=== PATIENT | female | born 1970 | race Caucasian/White ===

== ENCOUNTER → 2016-11-08 | Outpatient (CLI) | payer BC ==
[~2016-11-08] MED LIST: MEDR10TA9 PO; MULT-506 PO; ONDA4TAB46 PO; PRT/40 PO; RANI150T3 PO; SYN112 PO
[2016-11-08 11:19] LABS: ALT/SGPT 39 U/L (12-78); AST/SGOT 23 U/L (15-37); BLOOD UREA NITROGEN 9 mg/dl (7-18); CALCIUM 8.7 mg/dl (8.5-10.1); CARBON DIOXIDE 27 mmol/L (21-32); CHLORIDE 105 mmol/L (98-107); CHOLESTEROL 185 mg/dl (0-200); CREATININE 0.57 mg/dl (0.60-1.20); GLUCOSE 99 mg/dl (70-99); POTASSIUM 3.8 mmol/L (3.5-5.1); SODIUM 141 mmol/L (136-145)
[2016-11-08 11:30] LABS: CHOLESTEROL/HDL RATIO 3.7; HDL CHOLESTEROL 50 mg/dl; LDL CHOLESTEROL CALCULATED 103 mg/dl; TRIGLYCERIDES 161 mg/dl (0-150); VERY LOW DENSITY LIPOPROT CALC 32 mg/dl
[2016-11-08 11:34] LABS: ESTIMATED AVERAGE GLUCOSE 123 mg/dl; HA1C FLAG Normal (Normal)
== END | disposition home or self-care (01) ==
LOC: C.LAB1850 09:58
PROVIDERS: ATTEND Internal Medicine
DX: E78.5 Hyperlipidemia, unspecified (principal); R73.03 Prediabetes; E03.9 Hypothyroidism, unspecified

== ENCOUNTER → 2017-05-30 | Outpatient (CLI) | payer BC ==
--- NOTE | 2017-05-31 07:53 | MAMMOGRAPHY REPORT ---
BILATERAL DIGITAL SCREENING MAMMOGRAM TOMOSYNTHESIS WITH CAD: 05/30/2017 CLINICAL HISTORY: Routine screening. Patient has no complaints. TECHNIQUE: Breast tomosynthesis in addition to standard 2D mammography was performed. Current study was also evaluated with a Computer Aided Detection (CAD) system. COMPARISON: Comparison is made to exams dated: 05/24/2016 mammogram, 05/19/2015 mammogram, 03/15/2014 m ammogram, 03/02/2013 mammogram, 03/03/2012 mammogram, and 03/03/2012 ultrasound - [facility]. BREAST COMPOSITION: There are scattered areas of fibroglandular density in both breasts. FINDINGS: There are stable benign calcifications in both breasts. No suspicious mass, architectural distortion or cluster of suspicious microcalcifications is seen. IMPRESSION: ACR BI-RADS CATEGORY 1: NEGATIVE There is no mammographic evidence of malignancy. A 1 year screening mammogram is recommended. The pa tient will receive written notification of the results. Approximately 10% of breast cancers are not detected with mammography. A negative mammographic report should not delay biopsy if a clinically suggestive mass is present. Lili Almendarez M.D. ay/:05/30/2017 20:38:37 Supply Chain Logistics Manager: Marisela SANCHEZ)(Anton), [facility] letter sent: Normal 1/2 BI-RADS Code: ACR BI-RADS Category 1: Negative
== END | disposition home or self-care (01) ==
LOC: C.MAMM 09:26
PROVIDERS: ATTEND Internal Medicine
DX: Z12.31 Encounter for screening mammogram for malignant neoplasm of breast (principal)

== ENCOUNTER 2023-09-01 13:16 | Inpatient (IN) ==
[2023-09-01] MEDS ORDERED: SODIUM CHLORIDE 0.9% 500 ML IV STA (13:34)
--- NOTE | 2023-09-01 13:34 | ED Triage Note ---
Date of Service September 01, 2023 Provider in Triage Author: Antonia Estrada History of Present Illness This patient was briefly evaluated while in triage. An abbreviated physical exam was performed. This patient is a 53-year-old Female who presents to the ED for evaluation of rectal bleed. She states that she has had intermittent bright red or dark red rectal bleeding for the past 6-8 weeks. She is scheduled for hemorrhoid surgery soon. However, they did blood work and her Hgb was in the 6's per patient so they sent her to the ER. She states that she had the blood work last week through [facility], but they just contacted her today. Has a mild cough and congestion as well. Not on any blood thinners. Physical Exam GENERAL: Non-toxic and in no acute distress. HEENT: Pupils equal. No obvious scleral icterus. HEART: Regular rate and rhythm. LUNGS: Clear to auscultation. No accessory muscle use. ABDOMEN: Soft, mild diffuse tenderness in the lower abdomen. No guarding or rigidity. NEURO: Alert and oriented. No obvious neurological deficits on quick neuro exam. Initial orders for labs and / or imaging were placed and patient was placed in the waiting area until a bed is available. Please see further documentation for the full ED course. MDM / Impression Impression Impression: Rectal bleeding, Symptomatic anemia
--- NOTE | 2023-09-01 14:32 | XRay Report ---
XR chest 1V not portable CLINICAL HISTORY: Anemia, rectal bleeding. COMPARISON STUDY: Chest radiograph May 05, 2022. FINDINGS: Lung volumes are normal. Lungs are clear. There is no pneumothorax or pleural effusion. Car diac size is normal. Prominence of the contour of the ascending aorta is unchanged. There is no evide nce for pulmonary edema. IMPRESSION: No acute cardiopulmonary findings. ACT 112: Negative or not required by law. Electronically signed by: Jimmy Eid M.D. 09/01/2023 2:31 PM
[2023-09-01 14:46] LABS: Appearance Urine Clear (Clear); Bilirubin Urine Negative (Negative); Blood Urine Negative (Negative); Color Urine Yellow; Glucose Urine UA Negative (Negative); Ketones Urine Negative (Negative); Leukocyte Esterase Urine Negative (Negative); Nitrite Urine Negative (Negative); Protein Urine Negative (Negative); Specific Gravity Urine 1.003 (1.000-1.030); Urobilinogen Urine Negative (Negative); pH Urine 6.5 (4.5-7.5)
[2023-09-01 14:47] LABS: Basophils # (auto) 0.04 K/uL (0.00-0.20); Basophils % (auto) 0.6 %; Eosinophils # (auto) 0.04 K/uL (0.00-0.50); Eosinophils % (auto) 0.6 %; Hematocrit (blood only) 23.7 % (37.0-47.0); Hemoglobin 7.4 g/dl (12.0-16.0); Immature Granulocytes # (auto) 0.11 K/uL (0.01-0.20); Immature Granulocytes % (auto) 1.6 %; Lymphocytes # (auto) 0.84 K/uL (1.20-3.40); Lymphocytes % (auto) 11.9 %; Mean Corpuscular Hemoglobin 26.2 pg (25.0-34.0); Mean Corpuscular Hgb Conc 31.2 g/dL (32.0-36.0); Mean Platelet Volume 9.7 fL (9.4-12.4); Monocytes # (auto) 0.44 K/uL (0.11-0.59); Monocytes % (auto) 6.2 %; Neutrophils # (auto) 5.58 K/uL (1.40-6.50); Neutrophils % (auto) 79.1 %; Platelet Count 372 K/uL (130-400); RDW Coefficient of Variation 13.2 % (11.5-14.5); RDW Standard Deviation 40.5 fL (36.4-46.3); Red Blood Count 2.82 M/uL (4.20-5.40); White Blood Count 7.05 K/ul (4.8-10.8)
[2023-09-01 14:50] LABS: Albumin Globulin Ratio 1.3 (0.9-2); Albumin Level 4.2 gm/dl (3.4-5.0); BUN Creatinine Ratio 15.2 (10-20); Bilirubin,Total 0.3 mg/dl (0.2-1.0); Calcium 9.3 mg/dl (8.6-10.3); Creatinine Clr Calc Pharmacy 122.5 ml/min; Est GFR (African American) 117.7 ml/min; Est GFR (Non-African American) 101.6 ml/min; Globulin 3.2 gm/dl (2.5-4.0); Potassium 3.8 mmol/L (3.5-5.1); Total Protein 7.4 gm/dl (6.0-8.3)
[2023-09-01 14:56] LABS: Troponin I High Sensitivity 4.1 pg/ml (0-14)
[2023-09-01 14:58] LABS: Partial Thromboplastin Ratio 0.8; Partial Thromboplastin Time 22 Seconds (21-31); Prothrombin Time 10.9 Seconds (9.0-12.0)
[2023-09-01 15:09] LABS: Influenza A virus by PCR Negative (Neg); Influenza B virus by PCR Negative (Neg); RSV by PCR Negative (Neg); SARS CoV2 RNA(COVID-19) Ceph NEGATIVE (Negative)
[2023-09-01 15:10] LABS: Hypochromasia Present
[2023-09-01] MEDS ORDERED: OPTIRAY 320 500ml IV ONE (16:12)
--- NOTE | 2023-09-01 16:31 | CT Scan Report ---
CT OF THE ABDOMEN AND PELVIS WITH CONTRAST CLINICAL HISTORY: Rectal bleeding, anemia. COMPARISON STUDY: CT of the abdomen and pelvis June 13, 2014. Abdominal series November 12, 2014. TECHNIQUE: Following IV administration of 88 mL of Optiray, axial images of the abdomen and pelvis we re obtained from the lung bases to the proximal femurs. Images were reviewed in the axial, sagittal, and coronal planes. IV contrast was administered without complication. Automated exposure control wa s utilized for the study. A dose lowering technique was utilized adhering to the principles of ALARA . CT DOSE: 1526.61 mGy.cm FINDINGS: Lung bases are unremarkable. No pneumatosis, free air or portal venous gas is present. Ther e is probable hepatic steatosis. No hepatic lesions are identified. There is no biliary ductal dilata tion status post cholecystectomy. Spleen, adrenal glands, pancreas and right kidney are normal. There is a 3 mm left renal calculus. There are no ureteral calculi. There is no hydronephrosis. Major vasc ulature is patent. There are stable postoperative findings following subtotal colectomy with ileosigm oid anastomosis. Mild wall thickening of the alignment of the colon is unchanged. No mucosal lesion i s identified although sensitivity is diminished given CT technique. Prominent mesenteric lymph node m easuring 1.4 cm on image 218 of 421 is stable to slightly decreased in size. This is benign. There is no free fluid. A low-attenuation 3.1 cm left adnexal lesion favors a left ovarian cyst. IMPRESSION: 1. No acute process within the abdomen or pelvis. 2. Stable postoperative findings following subtotal colectomy with ileosigmoid anastomosis. No eviden ce for a bowel obstruction. No change in mild wall thickening of the alignment of the colon which is likely chronic. No mucosal lesion identified although sensitivity diminished given CT technique. 3. 3 mm left renal calculus. No ureteral calculi. No hydronephrosis. ACT 112: Negative or not required by law. Electronically signed by: Jimmy Eid M.D. 09/01/2023 4:29 PM
--- NOTE | 2023-09-01 17:21 | Electrocardiogram Report ---
Test Reason : Blood Pressure : / mmHG Vent. Rate : 108 BPM Atrial Rate : 108 BPM P-R Int : 150 ms QRS Dur : 088 ms QT Int : 342 ms P-R-T Axes : 034 001 034 degrees QTc Int : 458 ms Sinus tachycardia Otherwise normal ECG When compared with ECG of 22-NOV-2008 17:25, No significant change was found Confirmed by Xiang Layton ([id number]) on 09/01/2023 5:21:03 PM Referred By: Confirmed By:Osiel Layton
--- OUTSIDE RECORDS SUMMARY | 2023-09-01 17:29 | External Medical Summary | Summary of Care ---
Author Name Unknown Organization [facility] Address [address] [facility] [place] [address] Phone [phone] Care Team Providers Care Economics Faculty Member Name Role Phone Glenn Carpio MD Primary Care Provider [phone]- [phone] Encounter Details Date Type Department Care Team (Late st Contact Info) Description 09/01/2023 Orders Only OR [facility], Operating Room [facility] [address] [place] [phone] Louis Hopkins MD [address] [place] [id number] Preop examination* Allergies Active Allergy Reactions Criticality Noted Date Comments Amoxicillin-Pot Clavulanate Abdominal pain,Diarrhea 01/20/2016 Piperacillin Sod-Tazobactam So Hives 01/20/2016 documented as of this encounter (statuses as of 09/01/2023) Medications Medication Sig Dispensed Refills Start Date End Date Status MULTIPLE VITAMIN PO TABS One tablet daily 30 0 08/18/2006 Active Azelastine HCl 0.1 % nasal spray Administer 2 Sprays into nostril in the morning. 0 09/22/2019 Active Ipratropium [place] 0.06 % nasal spray at bedtime. 0 09/22/2019 Activ e Aspirin 81 MG Oral Tablet Delayed Release Take 1 Tablet by mouth every afternoon. 0 03/27/2020 Active Vitamin D3 Maximum Strength 125 MCG (5000 UT) Oral Capsule Take 1 Capsule by mouth in the morning. 0 07/06/2020 Active Levothyroxine Sodium 137 MCG Oral Tablet Take 1 Tablet by mouth in the morning. 0 06/06/2021 Active Xiidra 5 % Ophthalmic Solution 2 times a day. 0 05/26/2021 A ctive Mupirocin 2 % External Ointment (Bactroban) 0 05/12/2021 Active Vitamin B-12 1000 MCG Oral Tablet Take 1 Tablet by mouth in the morning. 0 Active Pantoprazole Sodium 40 MG Oral Tablet Delayed Release (Protonix) Take 1 Tablet by mouth in the morning. 90 Tablet 3 11/17/2022 Active Famotidine 20 MG Oral Tablet (Pepcid) TAKE 1 TABLET BY MOUTH AT BEDTIME 90 Tablet 1 03/15/2023 Active Dicyclomine HCl 10 MG Oral Capsule (Bentyl) TAKE 1 CAPSULE BY MOUTH THREE TIMES DAILY 90 Capsule 3 05/12/2023 Active documented as of this encounter (statuses as of 09/01/2023) Active Problems Problem Noted Date Diagnosed Date Dyslipidemia, goal to be determined 12/29/2000 ABDOMINAL PAIN, RIGHT UPPER QUADRANT 03/03/2000 Irritable bowel syndrome documented as of this encounter (statuses as of 09/01/2023) Social History Tobacco Use Types Packs/Day Years Used Date Smoking Tobacco: Never Smokeless Tobacco: Never Alcohol Use Standard Drinks/Week Comments Yes 0 (1 standard drink = 0.6 oz pur e alcohol) rare Sex and Gender Information Value Date Recorded Sex Assigned at Not on file Gender Identity Not on file Sexual Orientation Not on file Job Start Date Occupation Industry Not on file Not on file Not on file documented as of this encounter Plan of Treatment Upcoming Encounters Date Type Department Care Team (Latest Contact Info) Description 09/09/2023 12:05 PM EST Hospital Encounter OR [facility], Operating Room [facility] [address] [phone] Jono Hannah MD [address] [place] [address] 09/09/2023 12:05 PM EST - 09/09/2023 1:32 PM EST Surgery OR [facility], Operating Room [facility] [address] [address] [phone] Jono Hannah MD [address] [id number] ANORECTAL EXAM UNDER ANESTHESIA 09/21/2023 10:00 AM EST Office Visit General Surgery, [facility] [address] [place] [id number] Jono Hannah MD [address] [place] [id number] Scheduled Orders Name Type Priority Associated Diagnoses Orde r Schedule CBC Lab Routine Preop examination Expected: 09/01/2023, Expires: Scheduled Procedures Name Priority Associated Diagnoses Date/Ti me ANORECTAL EXAM UNDER ANESTHESIA Anal fissure Hemorrhoids, unspecified hemorrhoid type 09/09/2023 12:05 PM EST TREATMENT OF ANAL FISTULA COMPLEX Anal fissure Hemorrhoids, unspecified hemorrhoid type 09/09/2023 12:05 PM EST HEMORRHOIDECTOMY EXTERNAL AN D INTERNAL COMPLEX Anal fissure Hemorrhoids, unspecified hemorrhoid type 09/09/2023 12:05 PM EST COLONOSCOPY FLEXIBLE PROXIMA L DIAGNOSTIC Recall History of colon polyps Health Maintenance Due Date Last Done Comments Hepatitis B (1 of 3 - 3-dose series) 1971 COVID-19 Vaccine (#1) 1971 Depression Screening 1983 HIV Screening 1986 Hepatitis C Screening 1989 DTaP,Tdap,and Td Vaccines (1 - Tdap) 1990 HPV/Co-Test 2001 TSH 10/06/2001 10/06/2000 Cervical Cancer Screening 08/14/2006 Pap Smear 08/14/2006 08/14/2003, 08/05, 06/29/2001, Additional history exists Lipid Panel 10/03/2008 10/03/2003, 08/05, 10/23/2001, Additional history exists Mammogram 2011 Zoster Vaccines (1 of 2) 2021 Influenza Vaccine (FLU shot) (#1) 2023 Diabetes Screening 08/24/2026 08/24/2023, 0 10/03/2003, 08/22/2002, Additional history exists COLONOSCOPY-EVERY 5 YRS AGES 18-100 10/29/2027 10/29/2022, 10/29/2022, 05/23/2017, Additional history exists GARDASIL-HPV IMMUNIZATION SERIES Aged Out No longer eligible based on patient's age to complete this topic MENINGOCOCCAL (MENACTRA/MENVEO) Aged Out No longer eligible based on patient's age to complete this topic Pneumococcal Vaccine: Pediatrics (0 to 5 Years) and At-Risk Patients (6 to 64 Years) Aged Out No longer eligible based on patient's age to complete this topic documented as of this encounter Medical Devices Not on filedocumented as of this encounter Visit Diagnoses Diagnosis Preop examination- Primary Preoperative examination, unspecified Anal fissure Hemorrhoids, unspecified hemorrhoid type documented in this encounter Care Teams Economics Faculty Member Relationship Specialty Start Date End Date Pro, Glenn Urbina MD [address] [place] [address] PCP - General Internal Medicine 12/26/15 documented as of this encounter
--- OUTSIDE RECORDS SUMMARY | 2023-09-01 17:29 | External Medical Summary | Summary of Care ---
Author Name Unknown Organization [facility] Address [address] [place] [address] Phone [phone] Care Team Providers Care Orthopaedic Doctor Name Role Phone Glenn Carpio MD Primary Care Provider +1- [phone] Encounter Details Date Type Department Care Team (Late st Contact Info) Description 08/30/2023 Orders Only Outcomes Research Department [address], [place] [address] Jenna Swain [email or web address] Research Other*[id number] Allergies Active Allergy Reactions Criticality Noted Date Comments Amoxicillin-Pot Clavulanate Abdominal pain,Diarrhea 01/20/2016 Piperacillin Sod-Tazobactam So Hives 01/20/2016 documented as of this encounter (statuses as of 08/30/2023) Medications Medication Sig Dispensed Refills Start Date End Date Status MULTIPLE VITAMIN PO TABS One tablet daily 30 0 08/18/2006 Active Azelastine HCl 0.1 % nasal spray Administer 2 Sprays into nostril in the morning. 0 09/22/2019 Active Ipratropium [place] 0.06 % nasal spray at bedtime. 0 [...] as of this encounter (statuses as of 08/30/2023) Active Problems Problem Noted Date Diagnosed Date Dyslipidemia, goal to be determined 12/29/2000 ABDOMINAL PAIN, RIGHT UPPER QUADRANT 03/03/2000 Irritable bowel syndrome documented as of this encounter (statuses as of 08/30/2023) Social History Tobacco Use Types Packs/Day Years [...] Care Team (Latest Contact Info) Description 09/09/2023 1:28 PM EST Hospital Encounter OR [facility], Operating Room [facility] [address] [phone] Jono Hannah MD [address] [address] 09/09/2023 1:28 PM EST - 09/09/2023 2:55 PM EST Surgery OR [facility], Operating Room [facility] [address] [phone] Jono Hannah MD [address] [address] ANORECTAL EXAM UNDER ANESTHESIA 09/21/2023 10:00 AM EST Office Visit General Surgery, [facility] [address] [place] [address] Jono Hannah MD [address] [place] [address] Scheduled Orders Name Type Priority Associated Diagnoses Orde r Schedule MYCODE SUBSEQUENT ADULT Lab Routine [employer] Other*[id number] Every 6 Months for 2 Occurrences starting 08/30/2023 until 09/18/2024 Scheduled Procedures Name Priority Associated Diagnoses Date/Ti me ANORECTAL EXAM UNDER ANESTHESIA Anal fissure Hemorrhoids, unspecified hemorrhoid type 09/09/2023 1:28 PM EST TREATMENT OF ANAL FISTULA COMPLEX Anal fissure Hemorrhoids, unspecified hemorrhoid type 09/09/2023 1:28 PM EST HEMORRHOIDECTOMY EXTERNAL AN D INTERNAL COMPLEX Anal fissure Hemorrhoids, unspecified hemorrhoid type 09/09/2023 1:28 PM EST COLONOSCOPY FLEXIBLE PROXIMA L DIAGNOSTIC [...] as of this encounter Visit Diagnoses Diagnosis [employer] Other*[id number] Anal fissure Hemorrhoids, unspecified hemorrhoid type documented in this encounter Care Teams Orthopaedic Doctor Relationship Specialty Start Date End Date Pro, Glenn Urbina MD [address] [place] [address] PCP - General Internal Medicine 12/26/15 documented as of this encounter
--- NOTE | 2023-09-01 18:43 | Emergency Department Note ---
Impression & Plan Rectal bleeding, Symptomatic anemia ED Provider Note CHIEF COMPLAINT: Rectal bleeding HISTORY OF PRESENTING ILLNESS: This 53-year-old female patient presents to the emergency department for evaluation of rectal bleeding. In June 2023 she had a BM that was very watery and had a lot of bright red blood when she wiped. Since that time she has had random episodes of bright red blood and dark red blood in her stools, in the toilet bowl, and when she wipes. Seems to be having more frequent episodes and a larger amount of rectal bleeding. Now it fills the toilet bowl when she goes. Had 2 episodes yesterday, but none today. Typically has the rectal bleeding at least 4-5 times a week since June. Has been following with Dr. Hannah for evaluation of hemorrhoids as a cause of the rectal bleeding. However, the symptoms did not improve with symptomatic treatment. The patient was going to be scheduled for further intervention and had preop testing done and was found to have a hemoglobin of 6.7. However, the patient stated that she was not told until today that her hemoglobin was low and that she should come to the ER. Has mild lower abdominal cramping prior to the rectal bleeding, but otherwise no abdominal pain. Her stools range from normal soft formed BMs to a little firmer stools to loose stools. Has been feeling very tired and has some SOB with exertion and lightheadedness with exertion over the past 1-2 weeks. Denies chest pain, fevers, nausea, or vomiting. However, the patient has had a mild cough and nasal congestion for the past couple of days. Her last colonoscopy and EGD was Oct 29, 2022 through [facility]. Upon review of [facility] records, colonoscopy showed a 3 mm polyp in the rectum and a patent functional end-to-end ileocolonic anastomosis with healthy-appearing mucosa. EGD showed no acute abnormality with esophageal dilation performed. I do not have the results of the biopsies of either her colonoscopy or EGD. She has a history of partial colectomy due to diverticulitis and a large colon polyp in the past. Paternal great aunt with colon cancer, but no other family history of colon cancer. Has never had a blood transfusion before. Not on any blood thinners. Upon review of [facility] records, hemoglobin from 06/14/2023 was 14.6. Hemoglobin from 08/24/2023 was 6.7. REVIEW OF SYSTEMS: See HPI for pertinent positives and pertinent negatives. ALLERGIES: Tazobactam, Zosyn, Augmentin, PCN MEDICATIONS: See below PAST MEDICAL HISTORY: See below PHYSICAL EXAM: VITALS: Vitals are noted on the nurse's note and reviewed by myself. GENERAL: Non toxic, no acute distress, non-diaphoretic. SKIN: Capillary refill <2 sec. EYES: PERRLA. EOMI. Conjunctivae without injection, sclerae without icterus. NOSE: Patent without discharge. MOUTH: Mucous membranes moist. Uvula midline. Airway patent. NECK: Supple without nuchal rigidity. HEART: Regular rate and rhythm without murmurs gallops or rubs. LUNGS: Clear to auscultation bilaterally without wheezes, rales or rhonchi. No retractions or accessory muscle use. ABDOMEN: Positive bowel sounds x 4. Normal tympanic percussion. Soft, mild lower tenderness to palpation. No masses or organomegaly. Paredes sign negative. No CVA tenderness. No guarding or rebound tenderness. No focal RLQ or LLQ tenderness. RECTAL EXAM: Permission to perform the exam. [employer] Lining Machine Feeder present for the exam. Very small external hemorrhoid that is not inflamed or bleeding. No other external lesions noted. Normal sphincter tone. Internal hemorrhoids are mildly enlarged. No masses, tears, fistulas, fissures, or abscess noted. Stool is brown and Hemoccult positive. MUSCULOSKELETAL: No gross musculoskeletal defects. NEURO: Patient was alert and oriented. No focal neurological deficits. DIFFERENTIAL DIAGNOSIS: Differential diagnosis includes diverticular bleed, ischemic colitis, colitis, inflammatory bowel disease, AVM, angiodysplastic lesion, coagulopathy, malignancy, anal fissure, rectal tear, perianal fistula, abscess, hemorrhoids, rectal ulcer, Meckel's diverticulum, as well as other pathologies. ED COURSE AND MEDICAL DECISION MAKING: MONITOR: Continuous monitoring tech: Order was placed for continuous monitoring tech. Patient was placed on the monitoring tech and continuous pulse ox. Patient was noted to be in normal sinus rhythm at an initial rate of 96 bpm per my interpretation. EKG: EKG was interpreted by myself as sinus tachycardia at 108 bpm with no acute ST or T wave changes. MEDICATIONS GIVEN: The patient was given 500 mL normal saline solution bolus. She was given 1 unit of packed red blood cells. INTERPRETATION OF LABS: I interpreted the labs with full lab results as below in the lab section of this note. White blood cell count normal at 7.05. Hemoglobin low at 7.4. Platelet count normal at 372. Coags were normal. Glucose 106, but CMP otherwise unremarkable. Lipase was normal. High- sensitivity troponin was normal. Urinalysis was negative. COVID, influenza, and RSV were negative. Iron panel and TIBC were ordered prior to the blood transfusion. INTERPRETATION OF IMAGING: Imaging studies were interpreted by myself and read by radiology as per the imaging section of this note. Chest x-ray negative for acute cardiopulmonary etiology. CT scan of the abdomen pelvis with IV contrast showed no acute abnormalities. Stable postoperative findings with a subtotal colectomy and ileosigmoid anastomosis. EXTERNAL RECORDS REVIEWED: I reviewed the patient's [facility] records including her EGD and colonoscopy from October 2022 as well as her hemoglobin from June 2023 and 08/24/2023 as summarized above. CONSULTATIONS: On-call hospitalist MDM SUMMARY: The patient was seen during a time of extreme volume and extreme acuity. Nursing triage protocols were initiated with IV lock, labs, and/or imaging studies conducted by protocol in the triage area. The patient was initially evaluated in a triage room and then re-examined once they were taken back to an exam room. The patient's rectal exam with mildly inflamed internal hemorrhoids and brown stool that was Hemoccult positive. The patient showed me pictures of moderate to large amounts of bright red blood within the toilet bowl that she says has been happening multiple times a day multiple days a week since June 2023. The patient had an EGD and colonoscopy in October 2022 with a 3 mm rectal polyp that was removed, but otherwise unremarkable. Upon review of [facility] records, hemoglobin from 06/14/2023 was 14.6. Hemoglobin from 08/24/2023 was 6.7. The patient states that she was only called today to come to the ER due to her abnormal lab result. The patient's hemoglobin today is 7.4. CT scan of the abdomen and pelvis without acute abnormalities or cause of the bleeding. The patient is having fatigue as well as shortness of breath and lightheadedness with exertion. I had a meaningful discussion about this patient with Dr. Iglesias who agrees with my assessment and the treatment plan. I discussed the purpose, risks, and benefits of blood transfusion with the patient. The patient agreed to the transfusion and consent form was signed. Iron panel and ferritin were obtained prior to the blood transfusion. The patient was given 1 unit of packed red blood cells. Due to the patient's symptomatic anemia with continued rectal bleeding and Hemoccult positive stools, we feel the patient would benefit from admission. I spoke with the on-call hospitalist who agreed to admit the patient for further management. Please refer to their dictation for further details. The patient's care was transferred in stable condition. DIAGNOSIS: Rectal bleeding Symptomatic anemia Past Med/Surg History Medical History Sensorineural hearing loss (SNHL) of left ear with restricted hearing of right ear Thoracic compression fracture Acute back pain less than 4 weeks duration Lyme disease Biliary dyskinesia Sensorineural hearing loss (SNHL) of left ear with unrestricted hearing of right ear Tinnitus of both ears Ruptured tympanic membrane Acute sinusitis Ophthalmic herpes simplex Surgical History Hx of colonoscopy (~2016) History of partial colectomy Hx of cholecystectomy (~2010) S/P ACL repair S/P arthroscopy of knee H/O oral surgery Hx of tonsillectomy Family History Father Hypertension Hyperlipidemia Mother Hyperlipidemia Hypertension Breast cancer Grandfather Coronary heart disease Myocardial infarction Unknown Diabetes Grandmother Glaucoma Leukemia Social History Smoking Status: Never smoker Second Hand Exposure: Yes; Hx Alcohol Use: Yes Preferred Language: Tajik marital status: Single Current Living Situation: Alone current occupational status: employed Feels Safe at Home: Yes Dental Care, Regularly: Yes Physical Activity Frequency: 1-2 Times per Week Seatbelt Use: always Allergies Allergies Allergy/AdvReac Type Severity Reaction Status Date / Time tazobactam Allergy Mild ZOSYN--RXN Verified 09/01/23 19:20 UNKNOWN, TOLERATES MEFOXIN piperacillin [From Zosyn] Allergy Verified 09/01/23 19:20 amoxicillin AdvReac Intermediate DIARRHEA Verified 09/01/23 19:20 AND PAIN IN STOMACH clavulanic acid AdvReac Mild STOMACH Verified 09/01/23 19:20 UPSET AND DIARRHEA Penicillins AdvReac Mild STOMACH Verified 09/01/23 19:20 UPSET AND DIARRHEA Home Meds Home Medications Medication Instructions Recorded Confirmed dicyclomine 10 mg capsule 10 mg PO TID 03/19/19 09/01/23 multivitamin 1 tab PO QAM 03/19/19 09/01/23 famotidine 20 mg tablet 20 mg PO HS 01/16/20 09/01/23 aspirin 81 mg tablet,delayed 81 mg PO PM 04/10/20 09/01/23 release (Adult Aspirin Regimen) mecobalamin (vitamin B12) 1,000 1,000 mcg PO QAM 08/25/21 09/01/23 mcg chewable tablet lifitegrast 5 % eye drops in a 1 drp ophthalmic (eye) BID 05/05/22 09/01/23 dropperette (Xiidra) cholecalciferol (vitamin D3) 125 125 mcg PO QAM 09/01/23 09/01/23 mcg (5,000 unit) capsule ipratropium bromide 21 mcg (0.03 1 spray intranasal PM 09/01/23 09/01/23 %) nasal spray levothyroxine 137 mcg tablet 137 mcg PO QAM 09/01/23 09/01/23 pantoprazole 40 mg tablet,delayed 40 mg PO QAM 09/01/23 09/01/23 release Results & Data (ED) Vital Signs Vital Signs - 24 hr 09/01/23 13:33 09/01/23 18:59 09/01/23 19:02 Temperature 36.5 C Temperature Source Temporal Artery Scan Pulse Rate 117 H 99 H Pulse Rate [Apical] 99 H Respiratory Rate 18 18 Respiratory Effort / Characteristics Non-Labored Non-Labored Respiratory Depth Normal Normal Blood Pressure 162/96 H Blood Pressure [Right Arm] 140/94 Blood Pressure Mean 118 Blood Pressure Mean [Right Arm] 109 Pulse Oximetry 100 98 Oxygen Delivery Method Room Air Room Air Sepsis Recent Fever Within 48 Hours No Sepsis New/Unexplained Change in Mental Status No Sepsis Action Taken by Nursing No Action Required 09/01/23 19:02 Temperature Temperature Source Pulse Rate 92 H Pulse Rate [Apical] Respiratory Rate 18 Respiratory Effort / Characteristics Respiratory Depth Blood Pressure Blood Pressure [Right Arm] Blood Pressure Mean Blood Pressure Mean [Right Arm] Pulse Oximetry 95 Oxygen Delivery Method Room Air Sepsis Recent Fever Within 48 Hours Sepsis New/Unexplained Change in Mental Status Sepsis Action Taken by Nursing Laboratory Data 09/01/23 14:05 09/01/23 14:05 Lab Results 09/01/23 09/01/23 09/01/23 Range/Units 14:05 14:06 14:08 WBC 7.05 (4.8-10.8) K/ul RBC 2.82 L (4.20-5.40) M/uL Hgb 7.4 L (12.0-16.0) g/dl Hct 23.7 L (37.0-47.0) % MCV 84.0 (80.0-100.0) fL MCH 26.2 (25.0-34.0) pg MCHC 31.2 L (32.0-36.0) g/dL RDW Std Deviation 40.5 (36.4-46.3) fL RDW Coeff of Annie 13.2 (11.5-14.5) % Plt Count 372 (130-400) K/uL MPV 9.7 (9.4-12.4) fL Immature Gran % (Auto) 1.6 % Neut % (Auto) 79.1 % Lymph % (Auto) 11.9 % [place] % (Auto) 6.2 % Eos % (Auto) 0.6 % Baso % (Auto) 0.6 % Neut # (Auto) 5.58 (1.40-6.50) K/uL Lymph # (Auto) 0.84 L (1.20-3.40) K/uL [place] # (Auto) 0.44 (0.11-0.59) K/uL Eos # (Auto) 0.04 (0.00-0.50) K/uL Baso # (Auto) 0.04 (0.00-0.20) K/uL Immature Gran # (Auto) 0.11 (0.01-0.20) K/uL Hypochromasia Present PT 10.9 (9.0-12.0) Seconds INR 1.0 (0.9-1.1) APTT 22 (21-31) Seconds PTT Ratio 0.8 Sodium 141 (136-145) mmol/L Potassium 3.8 (3.5-5.1) mmol/L Chloride 107 (98-107) mmol/L Carbon Dioxide 27 (21-32) mmol/L Anion Gap 7 (3-11) BUN 10 (6-23) mg/dl Creatinine 0.66 (0.6-1.2) mg/dl Est Cr Clr Drug Dosing 122.5 ml/min Est GFR ( Amer) 117.7 ml/min Est GFR (Non-Af Amer) 101.6 ml/min BUN/Creatinine Ratio 15.2 (10-20) Glucose 106 H (70-99(Fasting)) mg/dl Calcium 9.3 (8.6-10.3) mg/dl Iron 10 L (35-150) mcg/dl TIBC 408 (250-450) mcg/dl Unsaturated IBC 398 H (155-355) mcg/dl Transferrin % Sat 2 L (15-50) % Ferritin 8.4 (8-388) ng/ml Total Bilirubin 0.3 (0.2-1.0) mg/dl AST 12 L (13-39) U/L ALT 12 (7-52) U/L Alkaline Phosphatase 76 (34-104) U/L Troponin I High Sens 4.1 (0-14) pg/ml Total Protein 7.4 (6.0-8.3) gm/dl Albumin 4.2 (3.4-5.0) gm/dl Globulin 3.2 (2.5-4.0) gm/dl Albumin/Globulin Ratio 1.3 (0.9-2) Lipase 15 (11-82) U/L Urine Color Yellow Urine Appearance Clear (Clear) Urine pH 6.5 (4.5-7.5) Ur Specific [place] 1.003 (1.000-1.030) Urine Protein Negative (Negative) Urine Glucose (UA) Negative (Negative) Urine Ketones Negative (Negative) Urine Blood Negative (Negative) Urine Nitrite Negative (Negative) Urine Bilirubin Negative (Negative) Urine Urobilinogen Negative (Negative) Ur Leukocyte Esterase Negative (Negative) SARS-CoV-2 (PCR) NEGATIVE (Negative) Influenza Type A (PCR) Negative (Neg) Influenza Type B (PCR) Negative (Neg) RSV (RT-PCR) Negative (Neg) Blood Type Blood Type Recheck Antibody Screen Crossmatch 09/01/23 09/01/23 Range/Units 18:45 19:32 WBC (4.8-10.8) K/ul RBC (4.20-5.40) M/uL Hgb (12.0-16.0) g/dl Hct (37.0-47.0) % MCV (80.0-100.0) fL MCH (25.0-34.0) pg MCHC (32.0-36.0) g/dL RDW Std Deviation (36.4-46.3) fL RDW Coeff of Annie (11.5-14.5) % Plt Count (130-400) K/uL MPV (9.4-12.4) fL Immature Gran % (Auto) % Neut % (Auto) % Lymph % (Auto) % [place] % (Auto) % Eos % (Auto) % Baso % (Auto) % Neut # (Auto) (1.40-6.50) K/uL Lymph # (Auto) (1.20-3.40) K/uL [place] # (Auto) (0.11-0.59) K/uL Eos # (Auto) (0.00-0.50) K/uL Baso # (Auto) (0.00-0.20) K/uL Immature Gran # (Auto) (0.01-0.20) K/uL Hypochromasia PT (9.0-12.0) Seconds INR (0.9-1.1) APTT (21-31) Seconds PTT Ratio Sodium (136-145) mmol/L Potassium (3.5-5.1) mmol/L Chloride (98-107) mmol/L Carbon Dioxide (21-32) mmol/L Anion Gap (3-11) BUN (6-23) mg/dl Creatinine (0.6-1.2) mg/dl Est Cr Clr Drug Dosing ml/min Est GFR ( Amer) ml/min Est GFR (Non-Af Amer) ml/min BUN/Creatinine Ratio (10-20) Glucose (70-99(Fasting)) mg/dl Calcium (8.6-10.3) mg/dl Iron (35-150) mcg/dl TIBC (250-450) mcg/dl Unsaturated IBC (155-355) mcg/dl Transferrin % Sat (15-50) % Ferritin (8-388) ng/ml Total Bilirubin (0.2-1.0) mg/dl AST (13-39) U/L ALT (7-52) U/L Alkaline Phosphatase (34-104) U/L Troponin I High Sens (0-14) pg/ml Total Protein (6.0-8.3) gm/dl Albumin (3.4-5.0) gm/dl Globulin (2.5-4.0) gm/dl Albumin/Globulin Ratio (0.9-2) Lipase (11-82) U/L Urine Color Urine Appearance (Clear) Urine pH (4.5-7.5) Ur Specific [place] (1.000-1.030) Urine Protein (Negative) Urine Glucose (UA) (Negative) Urine Ketones (Negative) Urine Blood (Negative) Urine Nitrite (Negative) Urine Bilirubin (Negative) Urine Urobilinogen (Negative) Ur Leukocyte Esterase (Negative) SARS-CoV-2 (PCR) (Negative) Influenza Type A (PCR) (Neg) Influenza Type B (PCR) (Neg) RSV (RT-PCR) (Neg) Blood Type B Positive Blood Type Recheck B Positive Antibody Screen NEGATIVE Crossmatch See Detail Administered Medications Dicyclomine HCl (Dicyclomine Hcl 10 Mg Cap) 10 mg PO TID EROS Stop: 10/01/23 22:22 Last Admin: 09/01/23 23:03 Dose: 10 mg Documented By: ASSURANCE ASSISTANT Famotidine (Famotidine 20 Mg Tab) 20 mg PO HS EROS Stop: 10/01/23 22:22 Last Admin: 09/01/23 23:03 Dose: 20 mg Documented By: ASSURANCE ASSISTANT Discontinued Medications Sodium Chloride (Nss) 500 mls @ 999 mls/hr IV .Q31M STA Stop: 09/01/23 14:04 Last Infusion: 09/01/23 20:27 Dose: Infused Documented By: ASSURANCE ASSISTANT Admin: 09/01/23 19:02 Dose: 999 mls/hr Documented By: MMG Ioversol (Optiray 320 500ml) 88 ml IV ONCE ONE Stop: 09/01/23 16:13 Last Admin: 09/01/23 16:13 Dose: 88 ml Documented By: PLW Imaging Data Radiologist's Impression: Chest X-Ray 09/01/23 13:34 XR chest 1V not portable CLINICAL HISTORY: Anemia, rectal bleeding. COMPARISON STUDY: Chest radiograph May 05, 2022. FINDINGS: Lung volumes are normal. Lungs are clear. There is no pneumothorax or pleural effusion. Cardiac size is normal. Prominence of the contour of the ascending aorta is unchanged. There is no evidence for pulmonary edema. IMPRESSION: No acute cardiopulmonary findings. ACT 112: Negative or not required by law. Electronically signed by: Jimmy Eid M.D. 09/01/2023 2:31 PM Abdomen/Pelvis CT 09/01/23 13:35 CT OF THE ABDOMEN AND PELVIS WITH CONTRAST CLINICAL HISTORY: Rectal bleeding, anemia. COMPARISON STUDY: CT of the abdomen and pelvis June 13, 2014. Abdominal series November 12, 2014. TECHNIQUE: Following IV administration of 88 mL of Optiray, axial images of the abdomen and pelvis were obtained from the lung bases to the proximal femurs. Images were reviewed in the axial, sagittal, and coronal planes. IV contrast was administered without complication. Automated exposure control was utilized for the study. A dose lowering technique was utilized adhering to the principles of ALARA. CT DOSE: 1526.61 mGy.cm FINDINGS: Lung bases are unremarkable. No pneumatosis, free air or portal venous gas is present. There is probable hepatic steatosis. No hepatic lesions are identified. There is no biliary ductal dilatation status post cholecystectomy. Spleen, adrenal glands, pancreas and right kidney are normal. There is a 3 mm left renal calculus. There are no ureteral calculi. There is no hydronephrosis. Major vasculature is patent. There are stable postoperative findings following subtotal colectomy with ileosigmoid anastomosis. Mild wall thickening of the alignment of the colon is unchanged. No mucosal lesion is identified although sensitivity is diminished given CT technique. Prominent mesenteric lymph node measuring 1.4 cm on image 218 of 421 is stable to slightly decreased in size. This is benign. There is no free fluid. A low-attenuation 3.1 cm left adnexal lesion favors a left ovarian cyst. IMPRESSION: 1. No acute process within the abdomen or pelvis. 2. Stable postoperative findings following subtotal colectomy with ileosigmoid anastomosis. No evidence for a bowel obstruction. No change in mild wall thickening of the alignment of the colon which is likely chronic. No mucosal lesion identified although sensitivity diminished given CT technique. 3. 3 mm left renal calculus. No ureteral calculi. No hydronephrosis. ACT 112: Negative or not required by law. Electronically signed by: Jimmy Eid M.D. 09/01/2023 4:29 PM Discharge Plan Visit Data Chief Complaint: Rectal Bleed Stated Complaint: RECTAL BLEED ED Provider: Letty Iglesias ED Midlevel Provider: Antonia Estrada Discharge Problem: Rectal bleeding, Symptomatic anemia Discharge Instructions Interventions: ED Discharge Assessment Last Done: 09/01/23 22:24
[2023-09-01] MEDS ORDERED: SODIUM CHLORIDE 0.9% 250 ML IV PRN ×2 (19:10→22:23)
[2023-09-01 19:57] LABS: Ferritin 8.4 ng/ml (8-388)
--- NOTE | 2023-09-01 20:29 | History & Physical Report ---
Date of Service September 01, 2023 Assessment & Plan (1) Rectal bleeding: Plan: 53yo female presenting with rectal bleed. Patient with history of subtotal colectomy as well as polyps and internal hemorrhoids. She reports she has been having bleeding ongoing since June but it has worsened over the last 2 weeks - she now has blood filling the toilet bowl 4-5 times weekly sometimes multiple times per day. Ddx to include diverticular bleed, hemorrhoid, polyp, AVM. Do not suspect upper GI source -Admit to medical with telemetry -Transfuse 1u PRBCs -Repeat CBC in AM -General Surgery consultation appreciated (2) Acid reflux: Plan: Chronic. Stable -Continue home Famotidine and Protonix (3) Hypothyroidism: Plan: Chronic. Stable. Last TSH on 05/05/23 normal at 1.44 -Continue Synthroid History of Present Illness Chief Complaint: rectal bleeding Primary Care Provider: Glenn Carpio MD Fabiola Handley is a 53yo female presenting with rectal bleeding. Patient remote history of diverticulitis s/p subtotal colectomy with end-to-side ileo-colonic anastomosis in the sigmoid colon, multiple polyps and internal hemorrhoids presenting with rectal bleeding. Patient has been having rectal bleeding ongoing since June. She reports that she would have passage of bright red blood per rectum that filled the toilet bowl - initially 2-3 times per week which has been increasing in frequency over the last several weeks. She now has blood in the toilet bowl 4-5 times weekly sometimes multiple times per day. She reports that her stools are mostly soft and she does not strain to have bowel movements. Reports no blood on or in the stool. She denies abdominal pain or pain with bowel movement. She has been seen by General Surgery in clinic for this issue - Dr. Hannah - and they plan for hemorrhoid removal or anal fissure repair on 09/09/23. She had an EGD and Colonoscopy performed on 10/29/22 which revealed one 3mm polyp which was removed, functional anastomosis with healthy mucosa. EGD normal. Patient was seen in clinic for pre-operative labs on 08/24/23 and had blood drawn. Her Hgb was found to be low at 6.7. She was contacted today with these results and told to come to the ER. She endorses some weakness and fatigue but denies chest pain, palpitations, SOB, CHOWDHURY. In the ER she is afebrile, HD stable, NAD ER Coure: 1u PRBCs Allergies Allergy/AdvReac Type Severity Reaction Status Date / Time tazobactam Allergy Mild ZOSYN--RXN Verified 09/01/23 19:20 UNKNOWN, TOLERATES MEFOXIN piperacillin [From Zosyn] Allergy Verified 09/01/23 19:20 amoxicillin AdvReac Intermediate DIARRHEA Verified 09/01/23 19:20 AND PAIN IN STOMACH clavulanic acid AdvReac Mild STOMACH Verified 09/01/23 19:20 UPSET AND DIARRHEA Penicillins AdvReac Mild STOMACH Verified 09/01/23 19:20 UPSET AND DIARRHEA Home Medications Medication Instructions Recorded Confirmed Type dicyclomine 10 mg capsule 10 mg PO TID 03/19/19 09/01/23 History multivitamin 1 tab PO QAM 03/19/19 09/01/23 History famotidine 20 mg tablet 20 mg PO HS 01/16/20 09/01/23 History aspirin 81 mg tablet,delayed 81 mg PO PM 04/10/20 09/01/23 History release (Adult Aspirin Regimen) mecobalamin (vitamin B12) 1,000 1,000 mcg PO QAM 08/25/21 09/01/23 History mcg chewable tablet lifitegrast 5 % eye drops in a 1 drp ophthalmic (eye) BID 05/05/22 09/01/23 History dropperette (Xiidra) cholecalciferol (vitamin D3) 125 125 mcg PO QAM 09/01/23 09/01/23 History mcg (5,000 unit) capsule ipratropium bromide 21 mcg (0.03 1 spray intranasal PM 09/01/23 09/01/23 History %) nasal spray levothyroxine 137 mcg tablet 137 mcg PO QAM 09/01/23 09/01/23 History pantoprazole 40 mg tablet,delayed 40 mg PO QAM 09/01/23 09/01/23 History release Past Med/Surg History Medical History Sensorineural hearing loss (SNHL) of left ear with restricted hearing of right ear Thoracic compression fracture Acute back pain less than 4 weeks duration Lyme disease Biliary dyskinesia Sensorineural hearing loss (SNHL) of left ear with unrestricted hearing of right ear Tinnitus of both ears Ruptured tympanic membrane Acute sinusitis Ophthalmic herpes simplex Surgical History Hx of colonoscopy (~2016) History of partial colectomy Hx of cholecystectomy (~2010) S/P ACL repair S/P arthroscopy of knee H/O oral surgery Hx of tonsillectomy Family History Father Hypertension Hyperlipidemia Mother Hyperlipidemia Hypertension Breast cancer Grandfather Coronary heart disease Myocardial infarction Unknown Diabetes Grandmother Glaucoma Leukemia Social History Smoking Status: Never smoker Second Hand Exposure: Yes; Hx Alcohol Use: Yes Preferred Language: French marital status: Single Current Living Situation: Alone current occupational status: employed Feels Safe at Home: Yes Dental Care, Regularly: Yes Physical Activity Frequency: 1-2 Times per Week Seatbelt Use: always Review of Systems Review of Systems: All systems reviewed & are unremarkable except as noted in HPI & below Physical Exam Physical Exam: General: patient resting comfortably, NAD, non-toxic in appearance, AA&O x 4 Skin: warm, dry, intact, no rashes or lesions HEENT: NC/AT, PERRL, EOMI, anicteric sclera, conjunctiva without injection, external ear normal to inspection and nontender, nares patent, moist mucus membranes, dentition intact, no oropharyngeal lesions, neck supple, trachea midline, no LAD, no thyromegaly, no JVD Heart: +S1/S2, regular, no m/r/g Lungs: equal air entry bilaterally, no rales/rhonchi/wheezes Abd: +BS, soft, NT/ND, no masses/organomegaly/ascites Ext: warm, 2+ pulses in UE/LE bilaterally, no clubbing/cyanosis or edema Neuro: nonfocal, patient AA&O x 4, speech intact, no facial droop, moving all extremities on command with equal strength 5/5 Rectal exam performed by ER with brown stool, internal hemorrhoids and Heme+ Results & Data Results & Data Vital Signs (Past 12 Hours) Vital Signs Temp Pulse Pulse Resp BP BP Pulse Ox 09/01/23 19:02 92 H 18 95 09/01/23 19:02 99 H 18 140/94 98 09/01/23 18:59 99 H 09/01/23 13:33 36.5 C 117 H 18 162/96 H 100 O2 Del Method 09/01/23 19:02 Room Air 09/01/23 19:02 Room Air 09/01/23 18:59 09/01/23 13:33 Room Air Laboratory Results Laboratory Results WBC 7.05 K/ul (4.8-10.8) 09/01/23 14:05 RBC 2.82 M/uL (4.20-5.40) L 09/01/23 14:05 Hgb 7.4 g/dl (12.0-16.0) L 09/01/23 14:05 Hct 23.7 % (37.0-47.0) L 09/01/23 14:05 MCV 84.0 fL (80.0-100.0) 09/01/23 14:05 MCH 26.2 pg (25.0-34.0) 09/01/23 14:05 MCHC 31.2 g/dL (32.0-36.0) L 09/01/23 14:05 RDW Std Deviation 40.5 fL (36.4-46.3) 09/01/23 14:05 RDW Coeff of Annie 13.2 % (11.5-14.5) 09/01/23 14:05 Plt Count 372 K/uL (130-400) 09/01/23 14:05 MPV 9.7 fL (9.4-12.4) 09/01/23 14:05 Immature Gran % (Auto) 1.6 % 09/01/23 14:05 Neut % (Auto) 79.1 % 09/01/23 14:05 Lymph % (Auto) 11.9 % 09/01/23 14:05 [place] % (Auto) 6.2 % 09/01/23 14:05 Eos % (Auto) 0.6 % 09/01/23 14:05 Baso % (Auto) 0.6 % 09/01/23 14:05 Neut # (Auto) 5.58 K/uL (1.40-6.50) 09/01/23 14:05 Lymph # (Auto) 0.84 K/uL (1.20-3.40) L 09/01/23 14:05 [place] # (Auto) 0.44 K/uL (0.11-0.59) 09/01/23 14:05 Eos # (Auto) 0.04 K/uL (0.00-0.50) 09/01/23 14:05 Baso # (Auto) 0.04 K/uL (0.00-0.20) 09/01/23 14:05 Immature Gran # (Auto) 0.11 K/uL (0.01-0.20) 09/01/23 14:05 Hypochromasia Present 09/01/23 14:05 PT 10.9 Seconds (9.0-12.0) 09/01/23 14:05 INR 1.0 (0.9-1.1) 09/01/23 14:05 APTT 22 Seconds (21-31) 09/01/23 14:05 PTT Ratio 0.8 09/01/23 14:05 Sodium 141 mmol/L (136-145) 09/01/23 14:05 Potassium 3.8 mmol/L (3.5-5.1) 09/01/23 14:05 Chloride 107 mmol/L (98-107) 09/01/23 14:05 Carbon Dioxide 27 mmol/L (21-32) 09/01/23 14:05 Anion Gap 7 (3-11) 09/01/23 14:05 BUN 10 mg/dl (6-23) 09/01/23 14:05 Creatinine 0.66 mg/dl (0.6-1.2) 09/01/23 14:05 Est Cr Clr Drug Dosing 122.5 ml/min 09/01/23 14:05 Est GFR ( Amer) 117.7 ml/min 09/01/23 14:05 Est GFR (Non-Af Amer) 101.6 ml/min 09/01/23 14:05 BUN/Creatinine Ratio 15.2 (10-20) 09/01/23 14:05 Glucose 106 mg/dl (70-99(Fasting)) H 09/01/23 14:05 Calcium 9.3 mg/dl (8.6-10.3) 09/01/23 14:05 Iron 10 mcg/dl (35-150) L 09/01/23 14:05 TIBC 408 mcg/dl (250-450) 09/01/23 14:05 Unsaturated IBC 398 mcg/dl (155-355) H 09/01/23 14:05 Transferrin % Sat 2 % (15-50) L 09/01/23 14:05 Ferritin 8.4 ng/ml (8-388) 09/01/23 14:05 Total Bilirubin 0.3 mg/dl (0.2-1.0) 09/01/23 14:05 AST 12 U/L (13-39) L 09/01/23 14:05 ALT 12 U/L (7-52) 09/01/23 14:05 Alkaline Phosphatase 76 U/L (34-104) 09/01/23 14:05 Troponin I High Sens 4.1 pg/ml (0-14) 09/01/23 14:05 Total Protein 7.4 gm/dl (6.0-8.3) 09/01/23 14:05 Albumin 4.2 gm/dl (3.4-5.0) 09/01/23 14:05 Globulin 3.2 gm/dl (2.5-4.0) 09/01/23 14:05 Albumin/Globulin Ratio 1.3 (0.9-2) 09/01/23 14:05 Lipase 15 U/L (11-82) 09/01/23 14:05 Urine Color Yellow 09/01/23 14:06 Urine Appearance Clear (Clear) 09/01/23 14:06 Urine pH 6.5 (4.5-7.5) 09/01/23 14:06 Ur Specific [place] 1.003 (1.000-1.030) 09/01/23 14:06 Urine Protein Negative (Negative) 09/01/23 14:06 Urine Glucose (UA) Negative (Negative) 09/01/23 14:06 Urine Ketones Negative (Negative) 09/01/23 14:06 Urine Blood Negative (Negative) 09/01/23 14:06 Urine Nitrite Negative (Negative) 09/01/23 14:06 Urine Bilirubin Negative (Negative) 09/01/23 14:06 Urine Urobilinogen Negative (Negative) 09/01/23 14:06 Ur Leukocyte Esterase Negative (Negative) 09/01/23 14:06 SARS-CoV-2 (PCR) NEGATIVE (Negative) 09/01/23 14:08 Influenza Type A (PCR) Negative (Neg) 09/01/23 14:08 Influenza Type B (PCR) Negative (Neg) 09/01/23 14:08 RSV (RT-PCR) Negative (Neg) 09/01/23 14:08 Blood Type B Positive 09/01/23 18:45 Blood Type Recheck B Positive 09/01/23 19:32 Antibody Screen NEGATIVE 09/01/23 18:45 Crossmatch See Detail 09/01/23 18:45 Impressions Chest X-Ray 09/01/23 13:34 XR chest 1V not portable CLINICAL HISTORY: Anemia, rectal bleeding. COMPARISON STUDY: Chest radiograph May 05, 2022. FINDINGS: Lung volumes are normal. Lungs are clear. There is no pneumothorax or pleural effusion. Cardiac size is normal. Prominence of the contour of the ascending aorta is unchanged. There is no evidence for pulmonary edema. IMPRESSION: No acute cardiopulmonary findings. ACT 112: Negative or not required by law. Electronically signed by: Jimmy Eid M.D. 09/01/2023 2:31 PM Abdomen/Pelvis CT 09/01/23 13:35 CT OF THE ABDOMEN AND PELVIS WITH CONTRAST CLINICAL HISTORY: Rectal bleeding, anemia. COMPARISON STUDY: CT of the abdomen and pelvis June 13, 2014. Abdominal series November 12, 2014. TECHNIQUE: Following IV administration of 88 mL of Optiray, axial images of the abdomen and pelvis were obtained from the lung bases to the proximal femurs. Images were reviewed in the axial, sagittal, and coronal planes. IV contrast was administered without complication. Automated exposure control was utilized for the study. A dose lowering technique was utilized adhering to the principles of ALARA. CT DOSE: 1526.61 mGy.cm FINDINGS: Lung bases are unremarkable. No pneumatosis, free air or portal venous gas is present. There is probable hepatic steatosis. No hepatic lesions are identified. There is no biliary ductal dilatation status post cholecystectomy. Spleen, adrenal glands, pancreas and right kidney are normal. There is a 3 mm left renal calculus. There are no ureteral calculi. There is no hydronephrosis. Major vasculature is patent. There are stable postoperative findings following subtotal colectomy with ileosigmoid anastomosis. Mild wall thickening of the alignment of the colon is unchanged. No mucosal lesion is identified although sensitivity is diminished given CT technique. Prominent mesenteric lymph node measuring 1.4 cm on image 218 of 421 is stable to slightly decreased in size. This is benign. There is no free fluid. A low-attenuation 3.1 cm left adnexal lesion favors a left ovarian cyst. IMPRESSION: 1. No acute process within the abdomen or pelvis. 2. Stable postoperative findings following subtotal colectomy with ileosigmoid anastomosis. No evidence for a bowel obstruction. No change in mild wall thickening of the alignment of the colon which is likely chronic. No mucosal lesion identified although sensitivity diminished given CT technique. 3. 3 mm left renal calculus. No ureteral calculi. No hydronephrosis. ACT 112: Negative or not required by law. Electronically signed by: Jimmy Eid M.D. 09/01/2023 4:29 PM ECG Additional Comments: DICTATED BY: Xiang Layton MD Test Reason : Blood Pressure : / mmHG Vent. Rate : 108 BPM Atrial Rate : 108 BPM P-R Int : 150 ms QRS Dur : 088 ms QT Int : 342 ms P-R-T Axes : 034 001 034 degrees QTc Int : 458 ms Sinus tachycardia Otherwise normal ECG When compared with ECG of 22-NOV-2008 17:25, No significant change was found Confirmed by Xiang Layton ([id number]) on 09/01/2023 5:21:03 PM PG Care Time/CCT Total # of Minutes Spent Total Time Spent with Patient: Total time spent is greater than 50% in coordination of care (as documented) at patient's floor/unit and/or counseling patient: Coding Level of Care Code 44942 INT INP/OBS CARE 2/55MIN Diagnoses Rectal bleeding K62.5 Acid reflux K21.9 Hypothyroidism E03.9
[2023-09-01] MEDS ORDERED: ACETAMINOPHEN 325 MG TAB PO PRN (22:23)
[2023-09-01] MEDS ORDERED: ONDANSETRON INJ 2 MG/ML 2 ML VIAL IV PRN (22:23)
[2023-09-01] MEDS: DICYCLOMINE HCL 10 MG CAP PO SCH (23:03)
[2023-09-01] MEDS: FAMOTIDINE 20 MG TAB PO SCH (23:03)
--- OUTSIDE RECORDS SUMMARY | 2023-09-01 23:50 | External Medical Summary | Summary of Care ---
Author Name Unknown Organization [facility] Address [address] [facility] [place] [address] Phone [phone] Care Team Providers Care Inspector Watch Assembly Name Role Phone , Glenn Urbina MD Primary Care Provider [phone] Reason for Visit * Reason Comments eRx-Medication Refill Encounter Details Date Type Department Care Team (Late st Contact Info) Description 08/31/2023 Refill Gastroenterology, [facility] [address] [place] [phone] Mary Tubbs CRNP [address] [place] [id number] Allergies Active Allergy Reactions Criticality Noted Date [...] in the morning. 0 09/22/2019 Active Ipratropium [place] 0.06 % nasal spray at bedtime. 0 09/22/2019 Active Aspirin 81 MG Oral Tablet Delayed Release [...] Solution 2 times a day. 0 05/26/2021 Active Mupirocin 2 % External Ointment (Bactroban) 0 05/12/2021 Active Vitamin B-12 1000 MCG Oral Tablet Take 1 Tablet by mouth in the morning. 0 Active Pantoprazole Sodium 40 MG Oral Tablet Delayed Release (Protonix) Take 1 Tablet by mouth in the morning. 90 Tablet 3 11/17/2022 Active Famotidine 20 MG Oral Tablet (Pepcid) TAKE 1 TABLET BY MOUTH AT BEDTIME 90 Tablet 0 09/01/2023 Active Dicyclomine HCl 10 MG Oral Capsule (Bentyl) TAKE 1 CAPSULE BY MOUTH THREE TIMES DAILY 90 Capsule 0 09/01/2023 Active Famotidine 20 MG Oral Tablet (Pepcid) TAKE 1 TABLET BY MOUTH AT BEDTIME 90 Tablet 1 03/15/2023 3 Discontinued Dicyclomine HCl 10 MG Oral Capsule (Bentyl) TAKE 1 CAPSULE BY MOUTH THREE TIMES DAILY 90 Capsule 3 05/12/2023 3 Discontinued documented as of this encounter (statuses as [...] on file documented as of this encounter Miscellaneous Notes * Telephone Encounter - Popeye Fuentes [facility] - 09/01/2023 11:56 AM EST Signed Prescriptions: Disp Refills Famotidine 20 MG Oral Tablet (Pepcid) 90 Tab*0 Sig: TAKE 1 TABLET BY MOUTH AT BEDTIMEAuthorizing Provider: MARY TUBBSOrdersachin User: ALFREDO, POPEYE VEL Dicyclomine HCl 10 MG Oral Capsule (Bentyl)90 Cap*0 Sig: TAKE 1 CAPSULE BY MOUTH THREE TIMES DAILYAuthorizing Provider: MARY TUBBS User: POPEYE FUENTES documented in this encounter Plan of Treatment Upcoming Encounters Date Type Department Care Team (Latest Contact Info) Description 09/09/2023 12:05 PM EST Hospital Encounter OR [facility], Operating Room [facility] [address] [place] [phone] Jono Hannah MD [address] [id number] 09/09/2023 12:05 PM EST - 09/09/2023 1:32 PM EST Surgery OR [facility], Operating Room [facility] [address] [id number] Jono Hannah MD [address] [id number] ANORECTAL EXAM UNDER ANESTHESIA 09/21/2023 10:00 AM EST Office Visit General Surgery, [facility] [address] [address] Jono Hannah MD [address] [place] [id number] Scheduled Procedures Name Priority Associated Diagnoses Date/Ti [...] Not on filedocumented as of this encounter Care Teams Inspector Watch Assembly Relationship Specialty Start Date End Date Pro, Glenn Urbina MD [address] [place] [address] PCP - General Internal Medicine 12/26/15 documented as of this encounter
--- NOTE | 2023-09-02 02:05 | Surgery Consultation ---
Date of Consultation September 02, 2023 Assessment & Plan (1) Rectal bleeding: Assessment: Patient is a 54 years old female with past medical history of hypothyroidism, hyperglycemia, hyperlipidemia, IBS, Obstructive sleep apnea, partial colectomy. Small vessel disease cerebrovascular, and Ventral hernia. Patient presented to ED with 2-month history intermittent rectal bleeding. Rectal bleeding is fresh blood after bowel movement. Patient feels lightheaded. Patient denies fever or chills, no diarrhea. or constipation.last time rectal bleeding today at ER. Plan: I recommend to do a rectal exam, possible rubber band ligation, hemorrhoidectomy, at the operating room in the morning. I did talk to patient about the benefit the risk and alternative of the procedure. I indicated the risks may include but not limited such as bleeding, infection, recurrence, may need more surgery, scar, and rectal pain. patient understood. she agreed to proceed procedure. she signed informed consent . I answered all questions, n.p.o. from now, stop ASA. iv fluid. History of Present Illness Reason for Consultation: rectal bleeding Requesting Physician: Alie Eduardo DO Attending Physician: Alie Eduardo DO History of Present Illness CC: rectal bleeding HPI: Patient is a 54 years old female with past medical history of hypothyroidism, hyperglycemia, hyperlipidemia, IBS, Obstructive sleep apnea, partial colectomy. Small vessel disease cerebrovascular, and Ventral hernia. Patient presented to ED with 2-month history intermittent rectal bleeding. Rectal bleeding is fresh blood after bowel movement. Patient feels lightheaded. Patient denies fever or chills, no diarrhea. or constipation.last time rectal bleeding today at ER. Patient is on 81 mg aspirin once a day for her small vessel disease cerebrovascular. hemoglobin 7.4. patient received 1 unit RBC in the ED, now patient feels better. Patient had a colonoscopy on November 2022. Patient was told she had internal hemorrhoid and polyp removed. Allergies Allergy/AdvReac Type Severity Reaction Status Date / Time tazobactam Allergy Mild ZOSYN--RXN Verified 09/01/23 19:20 UNKNOWN, TOLERATES MEFOXIN piperacillin [From Zosyn] Allergy Verified 09/01/23 19:20 amoxicillin AdvReac Intermediate DIARRHEA Verified 09/01/23 19:20 AND PAIN IN STOMACH clavulanic acid AdvReac Mild STOMACH Verified 09/01/23 19:20 UPSET AND DIARRHEA Penicillins AdvReac Mild STOMACH Verified 09/01/23 19:20 UPSET AND DIARRHEA Home Medications Medication Instructions Recorded Confirmed Type dicyclomine 10 mg capsule 10 mg PO TID 03/19/19 09/01/23 History multivitamin 1 tab PO QAM 03/19/19 09/01/23 History famotidine 20 mg tablet 20 mg PO HS 01/16/20 09/01/23 History aspirin 81 mg tablet,delayed 81 mg PO PM 04/10/20 09/01/23 History release (Adult Aspirin Regimen) mecobalamin (vitamin B12) 1,000 1,000 mcg PO QAM 08/25/21 09/01/23 History mcg chewable tablet lifitegrast 5 % eye drops in a 1 drp ophthalmic (eye) BID 05/05/22 09/01/23 History dropperette (Xiidra) cholecalciferol (vitamin D3) 125 125 mcg PO QAM 09/01/23 09/01/23 History mcg (5,000 unit) capsule ipratropium bromide 21 mcg (0.03 1 spray intranasal PM 09/01/23 09/01/23 History %) nasal spray levothyroxine 137 mcg tablet 137 mcg PO QAM 09/01/23 09/01/23 History pantoprazole 40 mg tablet,delayed 40 mg PO QAM 09/01/23 09/01/23 History release Patient History Medical History Sensorineural hearing loss (SNHL) of left ear with restricted hearing of right ear Thoracic compression fracture Acute back pain less than 4 weeks duration Lyme disease Biliary dyskinesia Sensorineural hearing loss (SNHL) of left ear with unrestricted hearing of right ear Tinnitus of both ears Ruptured tympanic membrane Acute sinusitis Ophthalmic herpes simplex Surgical History Hx of colonoscopy (~2017) History of partial colectomy Hx of cholecystectomy (~2010) S/P ACL repair S/P arthroscopy of knee H/O oral surgery Hx of tonsillectomy Family History Father Hypertension Hyperlipidemia Mother Hyperlipidemia Hypertension Breast cancer Grandfather Coronary heart disease Myocardial infarction Unknown Diabetes Grandmother Glaucoma Leukemia Social History Smoking Status: Never smoker Second Hand Exposure: Yes; Hx Alcohol Use: Yes Preferred Language: Turkish marital status: Single Current Living Situation: Alone current occupational status: employed Feels Safe at Home: Yes Dental Care, Regularly: Yes Physical Activity Frequency: 1-2 Times per Week Seatbelt Use: always Review of Systems Constitutional: as per Subjective / HPI Eyes: as per Subjective / HPI Respiratory: as per Subjective / HPI Obstructive sleep apnea Cardiovascular: as per Subjective / HPI Gastrointestinal: as per Subjective / HPI Genitourinary: as per Subjective / HPI Neurologic: Small vessel disease cerebrovascular Psychiatric: as per Subjective / HPI Endocrine: as per Subjective / HPI hyperglycemia Hematologic / Lymphatic: Vitamin D deficiency Physical Exam Constitutional: WD/WN, vitals as above No distress Eyes: PERRL, conjunctivae normal, anicteric sclerae Neck: trachea midline, no thyromegaly Respiratory: normal respiratory effort, lungs clear to auscultation Cardiovascular: RRR, no murmur, no edema Gastrointestinal (Abdomen): abdomen-soft, NT, ND, ventral hernia reducible. rectal exam- nurse with us, only can see blood clot at rectal area. no active bleeding at this moment. Musculoskeletal: no cyanosis or clubbing, extremities motor strength 5/5 Neurologic: patellar DTR's 2+ bilat, sensation intact Psychiatric: A+Ox3, euthymic affect Results & Data Vital Signs (Past 12 Hours) Vital Signs Temp Pulse Pulse Resp BP BP Pulse Ox 09/02/23 01:58 37.3 C 09/02/23 01:00 87 25 H 94 09/02/23 00:15 89 18 91 09/02/23 00:15 110/76 09/02/23 00:13 90 09/02/23 00:00 86 17 95 09/02/23 00:00 124/70 09/01/23 23:45 93 H 21 93 09/01/23 23:45 127/78 09/01/23 23:30 130/70 09/01/23 23:30 90 17 94 09/01/23 23:02 37.0 C 91 H 14 129/66 98 09/01/23 23:00 91 H 12 97 09/01/23 22:45 93 H 18 98 09/01/23 22:45 142/69 H 09/01/23 22:44 99 H 14 98 09/01/23 22:44 136/66 09/01/23 22:30 37.1 C 91 H 16 124/68 97 09/01/23 22:15 88 17 98 09/01/23 22:15 124/68 09/01/23 22:00 91 H 11 L 97 09/01/23 22:00 114/73 09/01/23 21:30 37.4 C 89 14 123/71 97 09/01/23 21:15 124/83 09/01/23 21:15 95 H 16 96 09/01/23 21:00 90 17 97 09/01/23 21:00 37.4 C 92 H 20 128/71 99 09/01/23 20:45 132/78 09/01/23 20:45 90 19 97 09/01/23 20:45 37.1 C 90 19 132/78 97 09/01/23 20:30 37.0 C 90 15 141/80 H 93 09/01/23 20:25 141/80 H 09/01/23 20:25 94 H 20 09/01/23 20:00 91 H 17 96 09/01/23 19:02 92 H 18 95 09/01/23 19:02 99 H 18 140/94 98 09/01/23 19:00 102 H 24 99 09/01/23 18:59 110 H 23 95 09/01/23 18:59 140/94 09/01/23 18:59 99 H O2 Del Method O2 Flow Rate 09/02/23 01:58 09/02/23 01:00 09/02/23 00:15 09/02/23 00:15 09/02/23 00:13 09/02/23 00:00 09/02/23 00:00 09/01/23 23:45 09/01/23 23:45 09/01/23 23:30 09/01/23 23:30 09/01/23 23:02 09/01/23 23:00 09/01/23 22:45 09/01/23 22:45 09/01/23 22:44 09/01/23 22:44 09/01/23 22:30 09/01/23 22:15 09/01/23 22:15 09/01/23 22:00 09/01/23 22:00 09/01/23 21:30 09/01/23 21:15 09/01/23 21:15 09/01/23 21:00 09/01/23 21:00 0 09/01/23 20:45 09/01/23 20:45 09/01/23 20:45 0 09/01/23 20:30 0 09/01/23 20:25 09/01/23 20:25 09/01/23 20:00 09/01/23 19:02 Room Air 09/01/23 19:02 Room Air 09/01/23 19:00 09/01/23 18:59 09/01/23 18:59 09/01/23 18:59 Laboratory Results Lab Results 09/01/23 09/01/23 09/01/23 Range/Units 14:05 14:06 14:08 WBC 7.05 (4.8-10.8) K/ul RBC 2.82 L (4.20-5.40) M/uL Hgb 7.4 L (12.0-16.0) g/dl Hct 23.7 L (37.0-47.0) % MCV 84.0 (80.0-100.0) fL MCH 26.2 (25.0-34.0) pg MCHC 31.2 L (32.0-36.0) g/dL RDW Std Deviation 40.5 (36.4-46.3) fL RDW Coeff of Annie 13.2 (11.5-14.5) % Plt Count 372 (130-400) K/uL MPV 9.7 (9.4-12.4) fL Immature Gran % (Auto) 1.6 % Neut % (Auto) 79.1 % Lymph % (Auto) 11.9 % Burt % (Auto) 6.2 % Eos % (Auto) 0.6 % Baso % (Auto) 0.6 % Neut # (Auto) 5.58 (1.40-6.50) K/uL Lymph # (Auto) 0.84 L (1.20-3.40) K/uL Burt # (Auto) 0.44 (0.11-0.59) K/uL Eos # (Auto) 0.04 (0.00-0.50) K/uL Baso # (Auto) 0.04 (0.00-0.20) K/uL Immature Gran # (Auto) 0.11 (0.01-0.20) K/uL Hypochromasia Present PT 10.9 (9.0-12.0) Seconds INR 1.0 (0.9-1.1) APTT 22 (21-31) Seconds PTT Ratio 0.8 Sodium 141 (136-145) mmol/L Potassium 3.8 (3.5-5.1) mmol/L Chloride 107 (98-107) mmol/L Carbon Dioxide 27 (21-32) mmol/L Anion Gap 7 (3-11) BUN 10 (6-23) mg/dl Creatinine 0.66 (0.6-1.2) mg/dl Est Cr Clr Drug Dosing 122.5 ml/min Est GFR ( Amer) 117.7 ml/min Est GFR (Non-Af Amer) 101.6 ml/min BUN/Creatinine Ratio 15.2 (10-20) Glucose 106 H (70-99(Fasting)) mg/dl Calcium 9.3 (8.6-10.3) mg/dl Iron 10 L (35-150) mcg/dl TIBC 408 (250-450) mcg/dl Unsaturated IBC 398 H (155-355) mcg/dl Transferrin % Sat 2 L (15-50) % Ferritin 8.4 (8-388) ng/ml Total Bilirubin 0.3 (0.2-1.0) mg/dl AST 12 L (13-39) U/L ALT 12 (7-52) U/L Alkaline Phosphatase 76 (34-104) U/L Troponin I High Sens 4.1 (0-14) pg/ml Total Protein 7.4 (6.0-8.3) gm/dl Albumin 4.2 (3.4-5.0) gm/dl Globulin 3.2 (2.5-4.0) gm/dl Albumin/Globulin Ratio 1.3 (0.9-2) Lipase 15 (11-82) U/L Urine Color Yellow Urine Appearance Clear (Clear) Urine pH 6.5 (4.5-7.5) Ur Specific [place] 1.003 (1.000-1.030) Urine Protein Negative (Negative) Urine Glucose (UA) Negative (Negative) Urine Ketones Negative (Negative) Urine Blood Negative (Negative) Urine Nitrite Negative (Negative) Urine Bilirubin Negative (Negative) Urine Urobilinogen Negative (Negative) Ur Leukocyte Esterase Negative (Negative) SARS-CoV-2 (PCR) NEGATIVE (Negative) Influenza Type A (PCR) Negative (Neg) Influenza Type B (PCR) Negative (Neg) RSV (RT-PCR) Negative (Neg) Blood Type Blood Type Recheck Antibody Screen Crossmatch 09/01/23 09/01/23 Range/Units 18:45 19:32 WBC (4.8-10.8) K/ul RBC (4.20-5.40) M/uL Hgb (12.0-16.0) g/dl Hct (37.0-47.0) % MCV (80.0-100.0) fL MCH (25.0-34.0) pg MCHC (32.0-36.0) g/dL RDW Std Deviation (36.4-46.3) fL RDW Coeff of Annie (11.5-14.5) % Plt Count (130-400) K/uL MPV (9.4-12.4) fL Immature Gran % (Auto) % Neut % (Auto) % Lymph % (Auto) % Burt % (Auto) % Eos % (Auto) % Baso % (Auto) % Neut # (Auto) (1.40-6.50) K/uL Lymph # (Auto) (1.20-3.40) K/uL Burt # (Auto) (0.11-0.59) K/uL Eos # (Auto) (0.00-0.50) K/uL Baso # (Auto) (0.00-0.20) K/uL Immature Gran # (Auto) (0.01-0.20) K/uL Hypochromasia PT (9.0-12.0) Seconds INR (0.9-1.1) APTT (21-31) Seconds PTT Ratio Sodium (136-145) mmol/L Potassium (3.5-5.1) mmol/L Chloride (98-107) mmol/L Carbon Dioxide (21-32) mmol/L Anion Gap (3-11) BUN (6-23) mg/dl Creatinine (0.6-1.2) mg/dl Est Cr Clr Drug Dosing ml/min Est GFR ( Amer) ml/min Est GFR (Non-Af Amer) ml/min BUN/Creatinine Ratio (10-20) Glucose (70-99(Fasting)) mg/dl Calcium (8.6-10.3) mg/dl Iron (35-150) mcg/dl TIBC (250-450) mcg/dl Unsaturated IBC (155-355) mcg/dl Transferrin % Sat (15-50) % Ferritin (8-388) ng/ml Total Bilirubin (0.2-1.0) mg/dl AST (13-39) U/L ALT (7-52) U/L Alkaline Phosphatase (34-104) U/L Troponin I High Sens (0-14) pg/ml Total Protein (6.0-8.3) gm/dl Albumin (3.4-5.0) gm/dl Globulin (2.5-4.0) gm/dl Albumin/Globulin Ratio (0.9-2) Lipase (11-82) U/L Urine Color Urine Appearance (Clear) Urine pH (4.5-7.5) Ur Specific [place] (1.000-1.030) Urine Protein (Negative) Urine Glucose (UA) (Negative) Urine Ketones (Negative) Urine Blood (Negative) Urine Nitrite (Negative) Urine Bilirubin (Negative) Urine Urobilinogen (Negative) Ur Leukocyte Esterase (Negative) SARS-CoV-2 (PCR) (Negative) Influenza Type A (PCR) (Neg) Influenza Type B (PCR) (Neg) RSV (RT-PCR) (Neg) Blood Type B Positive Blood Type Recheck B Positive Antibody Screen NEGATIVE Crossmatch See Detail
[2023-09-02 04:46] LABS: BUN Creatinine Ratio 16.7 (10-20); Calcium 8.6 mg/dl (8.6-10.3); Creatinine Clr Calc Pharmacy 122.5 ml/min; Est GFR (African American) 117.7 ml/min; Est GFR (Non-African American) 101.6 ml/min; Potassium 4.5 mmol/L (3.5-5.1)
[2023-09-02 05:12] LABS: Hematocrit (blood only) 22.1 % (37.0-47.0); Hemoglobin 6.8 g/dl (12.0-16.0); Mean Corpuscular Hgb Conc 30.8 g/dL (32.0-36.0); Mean Corpuscular Volume 87.7 fL (80.0-100.0); Mean Platelet Volume 9.7 fL (9.4-12.4); Platelet Count 317 K/uL (130-400); RDW Coefficient of Variation 13.9 % (11.5-14.5); RDW Standard Deviation 44.5 fL (36.4-46.3); Red Blood Count 2.52 M/uL (4.20-5.40); White Blood Count 7.86 K/ul (4.8-10.8)
[2023-09-02] MEDS ORDERED: SODIUM CHLORIDE 0.9% 250 ML IV PRN ×2 (05:18→07:58)
[2023-09-02] MEDS: LEVOTHYROXINE SODIUM 137 MCG TABLET PO SCH (08:58)
[2023-09-02] MEDS ORDERED: ONDANSETRON INJ 2 MG/ML 2 ML VIAL ONE (09:15)
[2023-09-02] MEDS ORDERED: LIDOCAINE 2% 2 ML VIAL/AMP(20MG/ML) INFIL ONE (09:15)
[2023-09-02] MEDS ORDERED: MIDAZOLAM HCL 1 MG/ML 2ML VIAL ONE (09:15)
[2023-09-02] MEDS ORDERED: fentaNYL citrate PF 100 MCG/2 ML VIAL ONE (09:15)
[2023-09-02] MEDS ORDERED: PROPOFOL IV EMULSION 10 MG/ML 20 ML VIAL IV ONE (09:15)
[2023-09-02] MEDS ORDERED: DEXAMETHASONE SOD INJ 4 MG/ML VIAL ONE (09:15)
--- NOTE | 2023-09-02 09:24 | History & Physical Bridge Note ---
Date of Service September 02, 2023 History & Physical Bridge Note I have examined the patient, reviewed the History & Physical and in the interval since the performance of the History & Physical I have noted the following changes of clinical significance: no changes noted
[2023-09-02] MEDS ORDERED: LIDOCAINE 1% LOCAL 20 ML VIAL ONE (09:28)
[2023-09-02] MEDS ORDERED: BACITRACIN OINT 14 GM TUBE ONE (09:28)
[2023-09-02] MEDS ORDERED: BUPIVACAINE 0.5 % 5 MG/1 ML MPF 30ML VIAL ONE (09:28)
[2023-09-02] MEDS ORDERED: GELATIN SPONGE SZ 100 ONE (09:28)
[2023-09-02] MEDS ORDERED: CIPROFLOXACIN 400MG / 200ML D5W IV ONE (09:57)
[2023-09-02] MEDS ORDERED: ATROPINE SULFATE 0.1 MG/ML 10ML SYR IV PRN (10:10)
[2023-09-02] MEDS ORDERED: fentaNYL citrate PF 100 MCG/2 ML VIAL IV PRN (10:10)
[2023-09-02] MEDS ORDERED: ONDANSETRON INJ 2 MG/ML 2 ML VIAL IV PRN (10:10)
[2023-09-02] MEDS ORDERED: ePHEDrine sulfate 50 MG/ML AMP IV PRN (10:10)
[2023-09-02] MEDS ORDERED: PROMETHAZINE HCL 6.25 MG in SODIUM CHLORIDE 0.9% 50 ML IV PRN (10:10)
--- NOTE | 2023-09-02 10:10 | Anesthesiology Consultation ---
Date of Service September 02, 2023 Assessment & Plan Chart Review Chart Review: Acceptable Risk for Surgery and Patient NOT seen in Pre Admission Testing Consults Requested none ASA ASA3 Proposed Anesthesia Anesthesia Type: General Risk / Benefits Reviewed With: PT / POA / Parent / Guardian, Accepts Plan and Informed Consent Obtained History Surgery Operation Date: 09/02/23 10:30 Proposed Procedures p Rectal Exam Rubber Band Ligation Hemorrhoid or Hemorrhoidectomy - Gail Rodriguez MD Height/Weight Height: 5 ft 5 in Weight: 109.1 kg Allergies Allergy/AdvReac Type Severity Reaction Status Date / Time tazobactam Allergy Mild ZOSYN--RXN Verified 09/01/23 19:20 UNKNOWN, TOLERATES MEFOXIN piperacillin [From Zosyn] Allergy Verified 09/01/23 19:20 amoxicillin AdvReac Intermediate DIARRHEA Verified 09/01/23 19:20 AND PAIN IN STOMACH clavulanic acid AdvReac Mild STOMACH Verified 09/01/23 19:20 UPSET AND DIARRHEA Penicillins AdvReac Mild STOMACH Verified 09/01/23 19:20 UPSET AND DIARRHEA Medications Home Medications Medication Instructions Recorded Confirmed Last Taken dicyclomine 10 mg capsule 10 mg PO TID 03/19/19 09/01/23 09/01/23 multivitamin 1 tab PO QAM 03/19/19 09/01/23 09/01/23 famotidine 20 mg tablet 20 mg PO HS 01/16/20 09/01/23 08/31/23 aspirin 81 mg tablet,delayed 81 mg PO PM 04/10/20 09/01/23 08/31/23 release (Adult Aspirin Regimen) mecobalamin (vitamin B12) 1,000 1,000 mcg PO QAM 08/25/21 09/01/23 09/01/23 mcg chewable tablet lifitegrast 5 % eye drops in a 1 drp ophthalmic (eye) BID 05/05/22 09/01/23 09/01/23 dropperette (Xiidra) cholecalciferol (vitamin D3) 125 125 mcg PO QAM 09/01/23 09/01/23 09/01/23 mcg (5,000 unit) capsule ipratropium bromide 21 mcg (0.03 1 spray intranasal PM 09/01/23 09/01/23 08/31/23 %) nasal spray levothyroxine 137 mcg tablet 137 mcg PO QAM 09/01/23 09/01/23 09/01/23 pantoprazole 40 mg tablet,delayed 40 mg PO QAM 09/01/23 09/01/23 09/01/23 release Active Medications Generic Name Dose Route Start Last Admin Trade Name Noni PRN Reason Stop Dose Admin Dicyclomine HCl 10 mg 09/01/23 22:23 09/01/23 23:03 Dicyclomine Hcl 10 Mg Cap PO 10/01/23 22:22 10 mg TID EROS Administration Famotidine 20 mg 09/01/23 22:23 09/01/23 23:03 Famotidine 20 Mg Tab PO 10/01/23 22:22 20 mg HS EROS Administration Levothyroxine Sodium 137 mcg 09/02/23 06:30 09/02/23 08:58 Levothyroxine Sodium 137 Mcg Tablet PO 10/02/23 06:29 Not Given DAILYBB EROS Miscellaneous 1 each 09/02/23 00:00 09/02/23 08:59 Order Awaiting Action: Ipratropium [place] 21 Mcg (0.03 %) Georgiana,Non-Aerosol N/A 10/02/23 00:00 Not Given QS EROS NPO Date Last Intake of Fluids: 09/01/23 Time Last Intake of Fluids: 20:30 Date Last Intake of Solids: 09/01/23 Time Last Intake of Solids: 08:30 Past Medical History Medical History Sensorineural hearing loss (SNHL) of left ear with restricted hearing of right ear Thoracic compression fracture Acute back pain less than 4 weeks duration Lyme disease Biliary dyskinesia Sensorineural hearing loss (SNHL) of left ear with unrestricted hearing of right ear Tinnitus of both ears Ruptured tympanic membrane Acute sinusitis Ophthalmic herpes simplex Exercise / Class Metabolic Activity II 4-5 Yardwork/Stairs/Walk up hill Past Family History Family History Father Hypertension Hyperlipidemia Mother Hyperlipidemia Hypertension Breast cancer Grandfather Coronary heart disease Myocardial infarction Unknown Diabetes Grandmother Glaucoma Leukemia Past Surgical History Surgical History Hx of colonoscopy (~2016) History of partial colectomy Hx of cholecystectomy (~2010) S/P ACL repair S/P arthroscopy of knee H/O oral surgery Hx of tonsillectomy Past Anesthesia History No Hx of Anesthesia Complications and No Family Hx of Anesthesia Complications History of PONV No Hx of PONV and No Hx of Motion Sickness Social History Smoking Status: Never smoker Hx Alcohol Use: Yes Physical Exam Vital Signs Last Vital Signs Temp 37.3 C 09/02/23 10:02 Pulse 100 H 09/02/23 10:02 Resp 18 09/02/23 10:02 BP 132/80 09/02/23 10:02 Pulse Ox 98 09/02/23 10:02 O2 Del Method Room Air 09/02/23 09:57 O2 Flow Rate 3 09/02/23 06:45 ENMT Mouth: no dentition abnormality Thyromental Distance: > or= 3.5 Finger Breadths Mallampati Class: II Neck normal visual inspection Respiratory normal respiratory effort Auscultation: lungs clear to auscultation bilaterally Cardiovascular Rate/Rhythm: regular rate and regular rhythm Psychiatric Orientation: alert Testing Laboratory Results 09/02/23 04:04 09/02/23 04:04 PT 10.9 Seconds (9.0-12.0) 09/01/23 14:05 INR 1.0 (0.9-1.1) 09/01/23 14:05 APTT 22 Seconds (21-31) 09/01/23 14:05 Urine Color Yellow 09/01/23 14:06 Urine Appearance Clear (Clear) 09/01/23 14:06 Urine pH 6.5 (4.5-7.5) 09/01/23 14:06 Ur Specific [place] 1.003 (1.000-1.030) 09/01/23 14:06 Urine Protein Negative (Negative) 09/01/23 14:06 Urine Glucose (UA) Negative (Negative) 09/01/23 14:06 Urine Ketones Negative (Negative) 09/01/23 14:06 Urine Nitrite Negative (Negative) 09/01/23 14:06 Ur Leukocyte Esterase Negative (Negative) 09/01/23 14:06 Blood Type B Positive 09/01/23 18:45 Antibody Screen NEGATIVE 09/01/23 18:45 09/02/23 09:35 POC Ur Test NEG
[2023-09-02] MEDS ORDERED: SUGAMMADEX SODIUM 200 MG/2 ML VIAL IV ONE (11:05)
--- NOTE | 2023-09-02 11:15 | Post Operative Brief Note ---
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
--- NOTE | 2023-09-02 11:51 | Anesthesiology Progress Note ---
Date of Service September 02, 2023 Anesthesia Post Procedure Vital Signs Vital Signs: Temp Pulse Pulse Resp BP BP BP 09/02/23 11:45 85 12 128/75 09/02/23 11:35 94 H 20 121/72 09/02/23 11:25 36.4 C L 99 H 16 111/72 09/02/23 10:02 37.3 C 100 H 18 132/80 09/02/23 09:57 37.3 C 100 H 18 132/80 09/02/23 09:52 37.0 C 74 20 135/74 09/02/23 09:37 37.0 C 74 20 134/70 09/02/23 09:00 134/77 09/02/23 09:00 91 H 15 09/02/23 08:55 90 14 09/02/23 08:50 92 H 15 09/02/23 08:45 85 17 09/02/23 08:45 130/75 09/02/23 08:40 87 14 09/02/23 08:35 85 15 09/02/23 08:30 87 16 09/02/23 08:30 12 122/72 09/02/23 08:30 36.8 C 86 20 135/74 09/02/23 08:15 124/77 09/02/23 08:15 87 12 09/02/23 08:00 74 20 124/79 09/02/23 08:00 92 H 19 09/02/23 07:45 127/74 09/02/23 07:45 91 H 18 09/02/23 07:30 92 H 22 09/02/23 07:30 120/77 09/02/23 07:30 91 H 20 121/74 09/02/23 07:15 93 H 18 09/02/23 07:15 121/74 09/02/23 07:00 120/75 09/02/23 07:00 89 17 09/02/23 07:00 92 H 09/02/23 07:00 36.7 C 90 20 131/74 09/02/23 06:45 120/75 09/02/23 06:45 88 25 H 09/02/23 06:45 37.2 C 98 H 18 120/75 09/02/23 06:30 93 H 21 09/02/23 06:22 37.1 C 110 H 14 101/76 09/02/23 06:17 101/76 09/02/23 06:17 98 H 17 09/02/23 06:00 89 19 09/02/23 06:00 114/71 09/02/23 06:00 09/02/23 05:30 91 H 19 09/02/23 05:00 90 24 09/02/23 05:00 107/60 09/02/23 04:16 99 H 9 L 09/02/23 03:00 125/74 09/02/23 03:00 94 H 22 09/02/23 02:00 97 H 17 09/02/23 02:00 141/82 H 09/02/23 01:58 37.3 C 09/02/23 01:45 153/80 H 09/02/23 01:45 101 H 19 09/02/23 01:15 125/74 09/02/23 01:15 89 23 09/02/23 01:00 87 25 H 09/02/23 00:15 89 18 09/02/23 00:15 110/76 09/02/23 00:13 90 09/02/23 00:00 86 17 09/02/23 00:00 124/70 09/01/23 23:45 93 H 21 09/01/23 23:45 127/78 09/01/23 23:30 130/70 09/01/23 23:30 90 17 09/01/23 23:02 37.0 C 91 H 14 129/66 09/01/23 23:00 91 H 12 09/01/23 22:45 93 H 18 09/01/23 22:45 142/69 H 09/01/23 22:44 99 H 14 09/01/23 22:44 136/66 09/01/23 22:30 37.1 C 91 H 16 124/68 09/01/23 22:15 88 17 09/01/23 22:15 124/68 09/01/23 22:00 91 H 11 L 09/01/23 22:00 114/73 09/01/23 21:30 37.4 C 89 14 123/71 09/01/23 21:15 124/83 09/01/23 21:15 95 H 16 09/01/23 21:00 90 17 09/01/23 21:00 37.4 C 92 H 20 128/71 12/28/23 20:45 132/78 09/01/23 20:45 90 19 09/01/23 20:45 37.1 C 90 19 132/78 09/01/23 20:30 37.0 C 90 15 141/80 H 09/01/23 20:25 141/80 H 09/01/23 20:25 94 H 20 09/01/23 20:00 91 H 17 09/01/23 19:02 92 H 18 09/01/23 19:02 99 H 18 140/94 09/01/23 19:00 102 H 24 09/01/23 18:59 110 H 23 09/01/23 18:59 140/94 09/01/23 18:59 99 H 09/01/23 13:33 36.5 C 117 H 18 162/96 H Pulse Ox O2 Del Method O2 Flow Rate 09/02/23 11:45 96 Nasal Cannula 2 09/02/23 11:35 93 Room Air 09/02/23 11:25 94 Oxymask 5 09/02/23 10:02 98 09/02/23 09:57 98 Room Air 09/02/23 09:52 98 09/02/23 09:37 97 09/02/23 09:00 09/02/23 09:00 99 09/02/23 08:55 99 09/02/23 08:50 100 09/02/23 08:45 99 09/02/23 08:45 09/02/23 08:40 99 09/02/23 08:35 99 09/02/23 08:30 100 09/02/23 08:30 98 09/02/23 08:30 97 09/02/23 08:15 09/02/23 08:15 99 09/02/23 08:00 97 09/02/23 08:00 98 09/02/23 07:45 09/02/23 07:45 98 09/02/23 07:30 99 09/02/23 07:30 09/02/23 07:30 99 09/02/23 07:15 99 09/02/23 07:15 09/02/23 07:00 09/02/23 07:00 99 09/02/23 07:00 09/02/23 07:00 97 09/02/23 06:45 09/02/23 06:45 99 09/02/23 06:45 100 3 09/02/23 06:30 98 09/02/23 06:22 97 09/02/23 06:17 09/02/23 06:17 100 09/02/23 06:00 98 09/02/23 06:00 09/02/23 06:00 99 Nasal Cannula 3 09/02/23 05:30 95 09/02/23 05:00 93 09/02/23 05:00 09/02/23 04:16 99 09/02/23 03:00 09/02/23 03:00 94 09/02/23 02:00 96 09/02/23 02:00 09/02/23 01:58 09/02/23 01:45 09/02/23 01:45 97 09/02/23 01:15 09/02/23 01:15 94 09/02/23 01:00 94 09/02/23 00:15 91 09/02/23 00:15 09/02/23 00:13 09/02/23 00:00 95 09/02/23 00:00 09/01/23 23:45 93 09/01/23 23:45 09/01/23 23:30 09/01/23 23:30 94 09/01/23 23:02 98 09/01/23 23:00 97 09/01/23 22:45 98 09/01/23 22:45 09/01/23 22:44 98 09/01/23 22:44 09/01/23 22:30 97 09/01/23 22:15 98 09/01/23 22:15 09/01/23 22:00 97 09/01/23 22:00 09/01/23 21:30 97 09/01/23 21:15 09/01/23 21:15 96 09/01/23 21:00 97 09/01/23 21:00 99 0 09/01/23 20:45 09/01/23 20:45 97 09/01/23 20:45 97 0 09/01/23 20:30 93 0 09/01/23 20:25 09/01/23 20:25 09/01/23 20:00 96 09/01/23 19:02 95 Room Air 09/01/23 19:02 98 Room Air 09/01/23 19:00 99 09/01/23 18:59 95 09/01/23 18:59 09/01/23 18:59 09/01/23 13:33 100 Room Air Transfer of Care Handoff Completed per policy Notes Mental Status: alert / awake / arousable Patient Amnestic to Procedure: Yes Nausea / Vomiting: adequately controlled Pain: adequately controlled Airway Patency, RR, SpO2: stable & adequate BP & HR: stable & adequate Hydration State: stable & adequate Anesthetic Complications: no major complications apparent
--- NOTE | 2023-09-02 12:49 | Surgery Progress Note ---
Date of Service September 02, 2023 Assessment & Plan (1) Rectal bleeding: Plan: Assessment: Patient is a 54 years old female with past medical history of hypothyroidism, hyperglycemia, hyperlipidemia, IBS, Obstructive sleep apnea, partial colectomy. Small vessel disease cerebrovascular, and Ventral hernia. Patient presented to ED with 2-month history intermittent rectal bleeding. Rectal bleeding is fresh blood after bowel movement. Patient feels lightheaded. Patient denies fever or chills, no diarrhea. or constipation.last time rectal bleeding today at ER. Plan: I recommend to do a rectal exam, possible rubber band ligation, hemorrhoidectomy, at the operating room in the morning. I did talk to patient about the benefit the risk and alternative of the procedure. I indicated the risks may include but not limited such as bleeding, infection, recurrence, may need more surgery, scar, and rectal pain. patient understood. she agreed to proceed procedure. she signed informed consent . I answered all questions, n.p.o. from now, stop ASA. iv fluid. 09/02/2023 12:43 PM S/P rectal exam, rigid sigmoidoscopy- found- only old blood clot on 20 cm from anal verge. no active bleeding found. most likely bleeding from above rectal area. consult GI recommend to do CTA, repeat H/H afternoon may need RBC if hemoglobin< 7. Patient needed transfer for higher level care if patient condition getting worse. after rectal exam I did talk to patient about the OR finding procedure we did. Patient understood. She is okay. If she needed transfer to higher level care. 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 thanks. Admission and Anticipated Discharge Date Admission Date: September 01, 2023 Subjective S/P rectal exam, rigid sigmoidoscopy, found- only old blood clot on 20 cm from anal verge. no active bleeding found. Review of Systems Constitutional: as per Subjective / HPI Eyes: as per Subjective / HPI Respiratory: as per Subjective / HPI Obstructive sleep apnea Cardiovascular: as per Subjective / HPI Gastrointestinal: as per Subjective / HPI Genitourinary: as per Subjective / HPI Neurologic: Small vessel disease cerebrovascular Psychiatric: as per Subjective / HPI Endocrine: as per Subjective / HPI hyperglycemia Hematologic / Lymphatic: Vitamin D deficiency Physical Exam Constitutional: WD/WN, vitals as above Eyes: PERRL, conjunctivae normal, anicteric sclerae Neck: trachea midline, no thyromegaly Respiratory: normal respiratory effort, lungs clear to auscultation Cardiovascular: RRR, no murmur, no edema Gastrointestinal (Abdomen): soft, NT, ND, BS +. Musculoskeletal: no cyanosis or clubbing, extremities motor strength 5/5 Neurologic: patellar DTR's 2+ bilat, sensation intact Psychiatric: A+Ox3, euthymic affect Results & Data Vital Signs (Past 12 Hours) Vital Signs Temp Pulse Pulse Resp BP BP BP 09/02/23 12:25 83 16 133/76 09/02/23 12:10 85 16 130/72 09/02/23 11:55 37.3 C 87 18 129/72 09/02/23 11:45 85 12 128/75 09/02/23 11:35 94 H 20 121/72 09/02/23 11:25 36.4 C L 99 H 16 111/72 09/02/23 10:02 37.3 C 100 H 18 132/80 09/02/23 09:57 37.3 C 100 H 18 132/80 09/02/23 09:52 37.0 C 74 20 135/74 09/02/23 09:37 37.0 C 74 20 134/70 09/02/23 09:00 134/77 09/02/23 09:00 91 H 15 09/02/23 08:55 90 14 09/02/23 08:50 92 H 15 09/02/23 08:45 85 17 09/02/23 08:45 130/75 09/02/23 08:40 87 14 09/02/23 08:35 85 15 09/02/23 08:30 87 16 09/02/23 08:30 12 122/72 09/02/23 08:30 36.8 C 86 20 135/74 09/02/23 08:15 124/77 09/02/23 08:15 87 12 09/02/23 08:00 74 20 124/79 09/02/23 08:00 92 H 19 09/02/23 07:45 127/74 09/02/23 07:45 91 H 18 09/02/23 07:30 92 H 22 09/02/23 07:30 120/77 09/02/23 07:30 91 H 20 121/74 09/02/23 07:15 93 H 18 12/29/23 07:15 121/74 09/02/23 07:00 120/75 09/02/23 07:00 89 17 09/02/23 07:00 92 H 09/02/23 07:00 36.7 C 90 20 131/74 09/02/23 06:45 120/75 09/02/23 06:45 88 25 H 09/02/23 06:45 37.2 C 98 H 18 120/75 09/02/23 06:30 93 H 21 09/02/23 06:22 37.1 C 110 H 14 101/76 09/02/23 06:17 101/76 09/02/23 06:17 98 H 17 09/02/23 06:00 89 19 09/02/23 06:00 114/71 09/02/23 06:00 09/02/23 05:30 91 H 19 09/02/23 05:00 90 24 09/02/23 05:00 107/60 09/02/23 04:16 99 H 9 L 09/02/23 03:00 125/74 09/02/23 03:00 94 H 22 09/02/23 02:00 97 H 17 09/02/23 02:00 141/82 H 09/02/23 01:58 37.3 C 09/02/23 01:45 153/80 H 09/02/23 01:45 101 H 19 09/02/23 01:15 125/74 09/02/23 01:15 89 23 09/02/23 01:00 87 25 H Pulse Ox O2 Del Method O2 Flow Rate 09/02/23 12:25 97 Nasal Cannula 2 09/02/23 12:10 97 Nasal Cannula 2 09/02/23 11:55 96 Nasal Cannula 2 09/02/23 11:45 96 Nasal Cannula 2 09/02/23 11:35 93 Room Air 09/02/23 11:25 94 Oxymask 5 09/02/23 10:02 98 09/02/23 09:57 98 Room Air 09/02/23 09:52 98 09/02/23 09:37 97 09/02/23 09:00 09/02/23 09:00 99 09/02/23 08:55 99 09/02/23 08:50 100 09/02/23 08:45 99 09/02/23 08:45 09/02/23 08:40 99 09/02/23 08:35 99 09/02/23 08:30 100 09/02/23 08:30 98 09/02/23 08:30 97 09/02/23 08:15 09/02/23 08:15 99 09/02/23 08:00 97 09/02/23 08:00 98 09/02/23 07:45 09/02/23 07:45 98 09/02/23 07:30 99 09/02/23 07:30 09/02/23 07:30 99 09/02/23 07:15 99 09/02/23 07:15 09/02/23 07:00 09/02/23 07:00 99 09/02/23 07:00 09/02/23 07:00 97 09/02/23 06:45 09/02/23 06:45 99 09/02/23 06:45 100 3 09/02/23 06:30 98 09/02/23 06:22 97 09/02/23 06:17 09/02/23 06:17 100 09/02/23 06:00 98 09/02/23 06:00 09/02/23 06:00 99 Nasal Cannula 3 09/02/23 05:30 95 09/02/23 05:00 93 09/02/23 05:00 09/02/23 04:16 99 09/02/23 03:00 09/02/23 03:00 94 09/02/23 02:00 96 09/02/23 02:00 09/02/23 01:58 09/02/23 01:45 09/02/23 01:45 97 09/02/23 01:15 09/02/23 01:15 94 09/02/23 01:00 94 Laboratory Results Lab Results 09/01/23 09/01/23 09/01/23 Range/Units 14:05 14:06 14:08 WBC 7.05 (4.8-10.8) K/ul RBC 2.82 L (4.20-5.40) M/uL Hgb 7.4 L (12.0-16.0) g/dl Hct 23.7 L (37.0-47.0) % MCV 84.0 (80.0-100.0) fL MCH 26.2 (25.0-34.0) pg MCHC 31.2 L (32.0-36.0) g/dL RDW Std Deviation 40.5 (36.4-46.3) fL RDW Coeff of Annie 13.2 (11.5-14.5) % Plt Count 372 (130-400) K/uL MPV 9.7 (9.4-12.4) fL Immature Gran % (Auto) 1.6 % Neut % (Auto) 79.1 % Lymph % (Auto) 11.9 % Gos[place] % (Auto) 6.2 % Eos % (Auto) 0.6 % Baso % (Auto) 0.6 % Neut # (Auto) 5.58 (1.40-6.50) K/uL Lymph # (Auto) 0.84 L (1.20-3.40) K/uL Gosper # (Auto) 0.44 (0.11-0.59) K/uL Eos # (Auto) 0.04 (0.00-0.50) K/uL Baso # (Auto) 0.04 (0.00-0.20) K/uL Immature Gran # (Auto) 0.11 (0.01-0.20) K/uL Hypochromasia Present PT 10.9 (9.0-12.0) Seconds INR 1.0 (0.9-1.1) APTT 22 (21-31) Seconds PTT Ratio 0.8 Sodium 141 (136-145) mmol/L Potassium 3.8 (3.5-5.1) mmol/L Chloride 107 (98-107) mmol/L Carbon Dioxide 27 (21-32) mmol/L Anion Gap 7 (3-11) BUN 10 (6-23) mg/dl Creatinine 0.66 (0.6-1.2) mg/dl Est Cr Clr Drug Dosing 122.5 ml/min Est GFR ( Amer) 117.7 ml/min Est GFR (Non-Af Amer) 101.6 ml/min BUN/Creatinine Ratio 15.2 (10-20) Glucose 106 H (70-99(Fasting)) mg/dl Calcium 9.3 (8.6-10.3) mg/dl Iron 10 L (35-150) mcg/dl TIBC 408 (250-450) mcg/dl Unsaturated IBC 398 H (155-355) mcg/dl Transferrin % Sat 2 L (15-50) % Ferritin 8.4 (8-388) ng/ml Total Bilirubin 0.3 (0.2-1.0) mg/dl AST 12 L (13-39) U/L ALT 12 (7-52) U/L Alkaline Phosphatase 76 (34-104) U/L Troponin I High Sens 4.1 (0-14) pg/ml Total Protein 7.4 (6.0-8.3) gm/dl Albumin 4.2 (3.4-5.0) gm/dl Globulin 3.2 (2.5-4.0) gm/dl Albumin/Globulin Ratio 1.3 (0.9-2) Lipase 15 (11-82) U/L Urine Color Yellow Urine Appearance Clear (Clear) Urine pH 6.5 (4.5-7.5) Ur Specific [place] 1.003 (1.000-1.030) Urine Protein Negative (Negative) Urine Glucose (UA) Negative (Negative) Urine Ketones Negative (Negative) Urine Blood Negative (Negative) Urine Nitrite Negative (Negative) Urine Bilirubin Negative (Negative) Urine Urobilinogen Negative (Negative) Ur Leukocyte Esterase Negative (Negative) POC Ur Test (NEG) SARS-CoV-2 (PCR) NEGATIVE (Negative) Influenza Type A (PCR) Negative (Neg) Influenza Type B (PCR) Negative (Neg) RSV (RT-PCR) Negative (Neg) Blood Type Blood Type Recheck Antibody Screen Crossmatch 09/01/23 09/01/23 09/02/23 Range/Units 18:45 19:32 04:04 WBC 7.86 (4.8-10.8) K/ul RBC 2.52 L (4.20-5.40) M/uL Hgb 6.8 L* (12.0-16.0) g/dl Hct 22.1 L (37.0-47.0) % MCV 87.7 (80.0-100.0) fL MCH 27.0 (25.0-34.0) pg MCHC 30.8 L (32.0-36.0) g/dL RDW Std Deviation 44.5 (36.4-46.3) fL RDW Coeff of Annie 13.9 (11.5-14.5) % Plt Count 317 (130-400) K/uL MPV 9.7 (9.4-12.4) fL Immature Gran % (Auto) % Neut % (Auto) % Lymph % (Auto) % Gosper % (Auto) % Eos % (Auto) % Baso % (Auto) % Neut # (Auto) (1.40-6.50) K/uL Lymph # (Auto) (1.20-3.40) K/uL Gosper # (Auto) (0.11-0.59) K/uL Eos # (Auto) (0.00-0.50) K/uL Baso # (Auto) (0.00-0.20) K/uL Immature Gran # (Auto) (0.01-0.20) K/uL Hypochromasia PT (9.0-12.0) Seconds INR (0.9-1.1) APTT (21-31) Seconds PTT Ratio Sodium 141 (136-145) mmol/L Potassium 4.5 (3.5-5.1) mmol/L Chloride 109 H (98-107) mmol/L Carbon Dioxide 26 (21-32) mmol/L Anion Gap 6 (3-11) BUN 11 (6-23) mg/dl Creatinine 0.66 (0.6-1.2) mg/dl Est Cr Clr Drug Dosing 122.5 ml/min Est GFR ( Amer) 117.7 ml/min Est GFR (Non-Af Amer) 101.6 ml/min BUN/Creatinine Ratio 16.7 (10-20) Glucose 153 H (70-99(Fasting)) mg/dl Calcium 8.6 (8.6-10.3) mg/dl Iron (35-150) mcg/dl TIBC (250-450) mcg/dl Unsaturated IBC (155-355) mcg/dl Transferrin % Sat (15-50) % Ferritin (8-388) ng/ml Total Bilirubin (0.2-1.0) mg/dl AST (13-39) U/L ALT (7-52) U/L Alkaline Phosphatase (34-104) U/L Troponin I High Sens (0-14) pg/ml Total Protein (6.0-8.3) gm/dl Albumin (3.4-5.0) gm/dl Globulin (2.5-4.0) gm/dl Albumin/Globulin Ratio (0.9-2) Lipase (11-82) U/L Urine Color Urine Appearance (Clear) Urine pH (4.5-7.5) Ur Specific [place] (1.000-1.030) Urine Protein (Negative) Urine Glucose (UA) (Negative) Urine Ketones (Negative) Urine Blood (Negative) Urine Nitrite (Negative) Urine Bilirubin (Negative) Urine Urobilinogen (Negative) Ur Leukocyte Esterase (Negative) POC Ur Test (NEG) SARS-CoV-2 (PCR) (Negative) Influenza Type A (PCR) (Neg) Influenza Type B (PCR) (Neg) RSV (RT-PCR) (Neg) Blood Type B Positive Blood Type Recheck B Positive Antibody Screen NEGATIVE Crossmatch See Detail 09/02/23 Range/Units 09:35 WBC (4.8-10.8) K/ul RBC (4.20-5.40) M/uL Hgb (12.0-16.0) g/dl Hct (37.0-47.0) % MCV (80.0-100.0) fL MCH (25.0-34.0) pg MCHC (32.0-36.0) g/dL RDW Std Deviation (36.4-46.3) fL RDW Coeff of Annie (11.5-14.5) % Plt Count (130-400) K/uL MPV (9.4-12.4) fL Immature Gran % (Auto) % Neut % (Auto) % Lymph % (Auto) % Gosper % (Auto) % Eos % (Auto) % Baso % (Auto) % Neut # (Auto) (1.40-6.50) K/uL Lymph # (Auto) (1.20-3.40) K/uL Gosper # (Auto) (0.11-0.59) K/uL Eos # (Auto) (0.00-0.50) K/uL Baso # (Auto) (0.00-0.20) K/uL Immature Gran # (Auto) (0.01-0.20) K/uL Hypochromasia PT (9.0-12.0) Seconds INR (0.9-1.1) APTT (21-31) Seconds PTT Ratio Sodium (136-145) mmol/L Potassium (3.5-5.1) mmol/L Chloride (98-107) mmol/L Carbon Dioxide (21-32) mmol/L Anion Gap (3-11) BUN (6-23) mg/dl Creatinine (0.6-1.2) mg/dl Est Cr Clr Drug Dosing ml/min Est GFR ( Amer) ml/min Est GFR (Non-Af Amer) ml/min BUN/Creatinine Ratio (10-20) Glucose (70-99(Fasting)) mg/dl Calcium (8.6-10.3) mg/dl Iron (35-150) mcg/dl TIBC (250-450) mcg/dl Unsaturated IBC (155-355) mcg/dl Transferrin % Sat (15-50) % Ferritin (8-388) ng/ml Total Bilirubin (0.2-1.0) mg/dl AST (13-39) U/L ALT (7-52) U/L Alkaline Phosphatase (34-104) U/L Troponin I High Sens (0-14) pg/ml Total Protein (6.0-8.3) gm/dl Albumin (3.4-5.0) gm/dl Globulin (2.5-4.0) gm/dl Albumin/Globulin Ratio (0.9-2) Lipase (11-82) U/L Urine Color Urine Appearance (Clear) Urine pH (4.5-7.5) Ur Specific [place] (1.000-1.030) Urine Protein (Negative) Urine Glucose (UA) (Negative) Urine Ketones (Negative) Urine Blood (Negative) Urine Nitrite (Negative) Urine Bilirubin (Negative) Urine Urobilinogen (Negative) Ur Leukocyte Esterase (Negative) POC Ur Test NEG (NEG) SARS-CoV-2 (PCR) (Negative) Influenza Type A (PCR) (Neg) Influenza Type B (PCR) (Neg) RSV (RT-PCR) (Neg) Blood Type Blood Type Recheck Antibody Screen Crossmatch
--- NOTE | 2023-09-02 13:09 | Operative Report ---
Post Operative Report Pre & Post Diagnosis Operation Date: 09/02/23 10:30 Pre-Op Diagnosis: Rectal bleeding Post-Op Diagnosis: GI bleeding I identified the patient and participated in the time-out.: Yes Procedure Operation Date: 09/02/23 10:30 Actual Procedures p Rectal Exam with rigid Sigmoidoscope - Gail Rodriguez MD Surgeon Gail Rodriguez MD [employer] salesperson Estimated Blood Loss 0 Findings Consistent with Post-Op Diagnosis found- only old blood clot 20 cm from anal verge, II degree internal hemorrhoid. no active bleeding. Fluids 400ml Specimens stool culture Drains none Anesthesia Type General Complications none Indications Patient is a 53 years old female who presented to ED with 2 male history intermittent rectal bleeding. I recommend to do a rectal exam possible rubber band ligation, possible hemorrhoidectomy.I Did talk to patient about the benefit the risk and alternative of the procedure. I indicated the risks may include but not limited such as bleeding, infection, recurrence, may need more procedure, scar, and pain. patient understood. she signed informed consent. i answer all questions. Description of Procedure After we identify patient to verify procedure report and patient lower put the patient on the supine position on the OR table patient received a SCD on bilateral Lipofen DVT also patient received 400 mg Cipro IV for prophylactic antibiotic patient received general anesthesia without difficulty. we put the patient in lithotomy position on the OR table. the rectal area was prepped and dropped in routine sterile fashion. After timeout. I put the endoscope again. Patient has a lot of the old blood clot with a stool come out. Smell is a bad, we send a stool culture to rule out C-diff infection, patient had only second- degree internal hemorrhoid which no active bleeding. then we insertion rigid sigmoidoscopy into rectum. finding- old blood clot with liquid stool, no active bleeding found. 20 cm from anal verge. then removed the rigid sigmoidoscopy. during the Procedure I talk to the GI doctor who recommend to do CTA to R/O GI bleeding. patient tolerated the procedure well, all instrument needle sponge count correct x 2 at end of the case. patient transferred to recovery room in stable condition. after procedure I did talk to patient about the OR finding and the procedure we did. she understood. I also discussion with the patient possible transfer to higher level care if patient condition getting worse. she Agreed with the plan. I answered all questions. I attest to the content of the Intraoperative Record and any orders documented therein. Any exceptions are noted below.
[2023-09-02] MEDS ORDERED: ARTIFICIAL TEARS OP PRN (13:11)
--- NOTE | 2023-09-02 14:04 | Gastrointestinal Consultation ---
Date of Consultation September 02, 2023 Assessment & Plan (1) Rectal bleeding: (2) Symptomatic anemia: Pt is a 53 yo female w anemia and worsening rectal bleeding s/p 3U PRBC transfussion, previously suspected to be related to hemorrhoids or fissure. Though on OR exam today by Dr. Rodriguez not found to have active source of bleeding noted. She did have blood clot and 2nd degree hemorrhoids found. - Monitor H/H and transfuse prn - She had recent EGD and colonoscopy done in 10/2022, will defer repeat - Obtain CTA abd/pelvis - F/U Cdiff stool study Supervising Physician Co-Signing Physician Notes I personally saw and evaluated the patient on 09/02/2023 with JOSY Miles and agree with her findings and plan of care. Abdomen soft and non-tender. She has a history of subtotal colectomy with ileosigmoid anastomosis many years ago. She was admitted to hospital for rectal bleeding since June that has worsened over the past 2 weeks (filling the toilet bowel a couple times per week) found to have a hgb of 6.8 from baseline 12 in April. She had an EGD and colonoscopy in 10/2022 with only 1 rectal polyp and hemorrhoids noted. It was felt the source of her bleeding was related to either internal hemorrhoids or a fissure. Dr. Rodriguez had taken patient to OR today for EUA for possible hemorrhoidectomy and noted to have an old blood clot with grade 2 hemorrhoids but felt this clot was not due to hemorrhoids. She has 3 units of PRBC ordered. At this time would recommend a CTA to try and localize any GI bleeding. She had recent EGD and colonoscopy in October. Nothing noted on colonoscopy other than hemorrhoids but Dr. Rodriguez did not feel this was bleeding source today. Trend H/H and transfuse for hgb <7. Marni Giron, Gastroenterology and Hepatology History of Present Illness Reason for Consultation: GI bleeding Requesting Physician: Dr. Gail Rodriguez Attending Physician: Dr. Marni Giron History of Present Illness Pt is a 53 yo female w PMHx of GERD, JANNIE, HLD, IBS, ventral hernia who is admitted with rectal bleeding. She had hx of diverticulitis s/p subtotal colectomy w ileocolonic anastomosis. Last colonoscopy done 10/2022 showed rectal polyp but otherwise normal exam. She was seen by Dr. Hannah on 08/24 for rectal bleeding and pain w hard BM. Planned for EUA for hemorrhoidectomy or anal fissure repair on 09/09/2023, however she presented w increased bleeding and anemia w Hgb low at 6.7. She is s/p 3U PRBC transfusion. She has normal plt, inr, bun. Cdiff pending. CT abd/pelvis w contrast wo acute processes. She denies abd pain, n/v, appetite or weight loss otherwise. No known hx of colorectal ca, or IBD She was taken to OR for exam by Dr. Rodriguez today. Found to have old blood clot with liquid stools, 2nd degree hemorrhoids wo active bleeding. Denies tobacco, ETOH, illicit drugs. Occasional use of NSAIDs. EGD 10/2022 normal exam, esophagus dilated. Allergies Allergy/AdvReac Type Severity Reaction Status Date / Time tazobactam Allergy Mild ZOSYN--RXN Verified 09/01/23 19:20 UNKNOWN, TOLERATES MEFOXIN piperacillin [From Zosyn] Allergy Verified 09/01/23 19:20 amoxicillin AdvReac Intermediate DIARRHEA Verified 09/01/23 19:20 AND PAIN IN STOMACH clavulanic acid AdvReac Mild STOMACH Verified 09/01/23 19:20 UPSET AND DIARRHEA Penicillins AdvReac Mild STOMACH Verified 09/01/23 19:20 UPSET AND DIARRHEA Home Medications Medication Instructions Recorded Confirmed Type dicyclomine 10 mg capsule 10 mg PO TID 03/19/19 09/01/23 History multivitamin 1 tab PO QAM 03/19/19 09/01/23 History famotidine 20 mg tablet 20 mg PO HS 01/16/20 09/01/23 History aspirin 81 mg tablet,delayed 81 mg PO PM 04/10/20 09/01/23 History release (Adult Aspirin Regimen) mecobalamin (vitamin B12) 1,000 1,000 mcg PO QAM 08/25/21 09/01/23 History mcg chewable tablet lifitegrast 5 % eye drops in a 1 drp ophthalmic (eye) BID 05/05/22 09/01/23 History dropperette (Xiidra) cholecalciferol (vitamin D3) 125 125 mcg PO QAM 12/28/23 12/28/23 History mcg (5,000 unit) capsule ipratropium bromide 21 mcg (0.03 1 spray intranasal PM 09/01/23 09/01/23 History %) nasal spray levothyroxine 137 mcg tablet 137 mcg PO QAM 09/01/23 09/01/23 History pantoprazole 40 mg tablet,delayed 40 mg PO QAM 09/01/23 09/01/23 History release Patient History Medical History Sensorineural hearing loss (SNHL) of left ear with restricted hearing of right ear Thoracic compression fracture Acute back pain less than 4 weeks duration Lyme disease Biliary dyskinesia Sensorineural hearing loss (SNHL) of left ear with unrestricted hearing of right ear Tinnitus of both ears Ruptured tympanic membrane Acute sinusitis Ophthalmic herpes simplex Surgical History Hx of colonoscopy (~2016) History of partial colectomy Hx of cholecystectomy (~2010) S/P ACL repair S/P arthroscopy of knee H/O oral surgery Hx of tonsillectomy Family History Father Hypertension Hyperlipidemia Mother Hyperlipidemia Hypertension Breast cancer Grandfather Coronary heart disease Myocardial infarction Unknown Diabetes Grandmother Glaucoma Leukemia Social History Smoking Status: Never smoker Second Hand Exposure: Yes; Hx Alcohol Use: Yes Preferred Language: Argentine marital status: Single Current Living Situation: Alone current occupational status: employed Feels Safe at Home: Yes Dental Care, Regularly: Yes Physical Activity Frequency: 1-2 Times per Week Seatbelt Use: always Review of Systems Review of Systems: All systems reviewed & are unremarkable except as noted in HPI & below Physical Exam Constitutional: WD/WN, vitals as above well groomed, cooperative and comfortable Eyes: PERRL, conjunctivae normal, anicteric sclerae ENMT: external ear and nose normal, oropharynx normal Respiratory: normal respiratory effort, lungs clear to auscultation Cardiovascular: RRR, no murmur, no edema Gastrointestinal (Abdomen): normal bowel sounds, soft, nontender, no hepatosplenomegaly Skin: no rashes, warm and dry no jaundice Psychiatric: A+Ox3, euthymic affect Lymphatic: no lymphedema Results & Data Vital Signs (Past 12 Hours) Vital Signs Temp Pulse Pulse Resp BP BP BP 09/02/23 13:30 87 16 128/74 09/02/23 12:55 85 18 139/81 09/02/23 12:40 87 18 133/73 09/02/23 12:25 83 16 133/76 09/02/23 12:10 85 16 130/72 09/02/23 11:55 37.3 C 87 18 129/72 09/02/23 11:45 85 12 128/75 09/02/23 11:35 94 H 20 121/72 09/02/23 11:25 36.4 C L 99 H 16 111/72 09/02/23 10:02 37.3 C 100 H 18 132/80 09/02/23 09:57 37.3 C 100 H 18 132/80 09/02/23 09:52 37.0 C 74 20 135/74 09/02/23 09:37 37.0 C 74 20 134/70 09/02/23 09:00 134/77 09/02/23 09:00 91 H 15 09/02/23 08:55 90 14 09/02/23 08:50 92 H 15 09/02/23 08:45 85 17 09/02/23 08:45 130/75 09/02/23 08:40 87 14 09/02/23 08:35 85 15 09/02/23 08:30 87 16 09/02/23 08:30 12 122/72 09/02/23 08:30 36.8 C 86 20 135/74 09/02/23 08:15 124/77 09/02/23 08:15 87 12 09/02/23 08:00 74 20 124/79 09/02/23 08:00 92 H 19 09/02/23 07:45 127/74 09/02/23 07:45 91 H 18 09/02/23 07:30 92 H 22 09/02/23 07:30 120/77 09/02/23 07:30 91 H 20 121/74 09/02/23 07:15 93 H 18 09/02/23 07:15 121/74 09/02/23 07:00 120/75 09/02/23 07:00 89 17 09/02/23 07:00 92 H 09/02/23 07:00 36.7 C 90 20 131/74 09/02/23 06:45 120/75 09/02/23 06:45 88 25 H 09/02/23 06:45 37.2 C 98 H 18 120/75 09/02/23 06:30 93 H 21 09/02/23 06:22 37.1 C 110 H 14 101/76 09/02/23 06:17 101/76 09/02/23 06:17 98 H 17 09/02/23 06:00 89 19 09/02/23 06:00 114/71 09/02/23 06:00 09/02/23 05:30 91 H 19 09/02/23 05:00 90 24 09/02/23 05:00 107/60 09/02/23 04:16 99 H 9 L 09/02/23 03:00 125/74 09/02/23 03:00 94 H 22 09/02/23 02:00 97 H 17 09/02/23 02:00 141/82 H 09/02/23 01:58 37.3 C Pulse Ox O2 Del Method O2 Flow Rate 09/02/23 13:30 96 Nasal Cannula 2 09/02/23 12:55 97 Nasal Cannula 2 09/02/23 12:40 97 Nasal Cannula 2 09/02/23 12:25 97 Nasal Cannula 2 09/02/23 12:10 97 Nasal Cannula 2 09/02/23 11:55 96 Nasal Cannula 2 09/02/23 11:45 96 Nasal Cannula 2 09/02/23 11:35 93 Room Air 09/02/23 11:25 94 Oxymask 5 09/02/23 10:02 98 09/02/23 09:57 98 Room Air 09/02/23 09:52 98 09/02/23 09:37 97 09/02/23 09:00 09/02/23 09:00 99 09/02/23 08:55 99 09/02/23 08:50 100 09/02/23 08:45 99 09/02/23 08:45 09/02/23 08:40 99 09/02/23 08:35 99 09/02/23 08:30 100 09/02/23 08:30 98 09/02/23 08:30 97 09/02/23 08:15 09/02/23 08:15 99 09/02/23 08:00 97 09/02/23 08:00 98 09/02/23 07:45 09/02/23 07:45 98 09/02/23 07:30 99 09/02/23 07:30 09/02/23 07:30 99 09/02/23 07:15 99 09/02/23 07:15 09/02/23 07:00 09/02/23 07:00 99 09/02/23 07:00 09/02/23 07:00 97 09/02/23 06:45 09/02/23 06:45 99 09/02/23 06:45 100 3 09/02/23 06:30 98 09/02/23 06:22 97 09/02/23 06:17 09/02/23 06:17 100 09/02/23 06:00 98 09/02/23 06:00 09/02/23 06:00 99 Nasal Cannula 3 09/02/23 05:30 95 09/02/23 05:00 93 09/02/23 05:00 09/02/23 04:16 99 09/02/23 03:00 09/02/23 03:00 94 09/02/23 02:00 96 09/02/23 02:00 09/02/23 01:58
--- NOTE | 2023-09-02 16:05 | Hospitalist Progress Note ---
Date of Service September 02, 2023 Assessment & Plan (1) Rectal bleeding: Plan: Lower GI source. She had endoscopic evaluation for general surgery today in the OR. This was followed by GI consultation and CT scan of the abdomen and pelvis. No significant findings noted. She previously has undergone partial colectomy with end-to-end reanastomosis. (2) Acute blood loss anemia: Plan: She has received 3 units of packed red blood cells to date. Continue H&H every 6 hours. Transfuse as necessary (3) Acid reflux: Plan: Stable. Continue PPI therapy and H2 libia (4) Hypothyroidism: Plan: Chronic. Continue Synthroid replacement therapy Plan Hopeful discharge to home soon Admission and Anticipated Discharge Date Admission Date: September 01, 2023 Subjective Alert and oriented. The patient was seen in the postanesthesia care unit. She had endoscopy this morning under anesthesia but from what I can tell from the surgical notes there was no surgical intervention. She had evidence of old blood but no actively bleeding internal hemorrhoids. GI consultation was obtained. CT scan of the abdomen and pelvis was obtained and is negative. She has received 3 units of packed red blood cells to date. Will continue serial H&H measurements. Review of Systems 2 Review of Systems: Constitutional-no fever or chills ENT-no blurred vision, no double vision, no epistaxis, no sore throat Respiratory-no cough, no wheezing, no shortness of breath Cardiac-no palpitations, no chest pain, no syncope GI-no nausea, vomiting, diarrhea. Several episodes of bright red rectal bleeding -no urinary retention, no urinary incontinence, no dysuria, no hematuria Musculoskeletal-no joint pain, no muscle tenderness Skin-no bruising, no rashes, no pruritus Neuro-no isolated weakness, no paresthesia, no weakness Psych-no depression, no anxiety Physical Exam 2 Physical Exam: General-alert and oriented x3, no fevers, no chills HEENT-head atraumatic and normocephalic, pupils equal and reactive to light, extraocular muscles intact Neck-no lymphadenopathy or thyromegaly, trachea midline Chest-clear to auscultation percussion. No rales, wheezing or rhonchi Cardiac-regular rate and rhythm, normal S1 and S2 Abdomen-normal bowel sounds, nontender, no hepatosplenomegaly Extremities-no cyanosis, clubbing, or edema Neuro-cranial nerves II through XII intact, motor and sensory function within normal limits, strength symmetrical, no focal deficits Psych-normal affect, normal mood Results & Data Results & Data Vital Signs (Past 12 Hours) Vital Signs Temp Pulse Pulse Resp BP BP BP 09/02/23 15:30 92 H 21 140/86 09/02/23 14:30 37.3 C 92 H 16 127/74 09/02/23 14:00 96 H 23 122/64 09/02/23 13:30 87 16 128/74 09/02/23 12:55 85 18 139/81 09/02/23 12:40 87 18 133/73 09/02/23 12:25 83 16 133/76 09/02/23 12:10 85 16 130/72 09/02/23 11:55 37.3 C 87 18 129/72 09/02/23 11:45 85 12 128/75 09/02/23 11:35 94 H 20 121/72 09/02/23 11:25 36.4 C L 99 H 16 111/72 09/02/23 10:02 37.3 C 100 H 18 132/80 09/02/23 09:57 37.3 C 100 H 18 132/80 09/02/23 09:52 37.0 C 74 20 135/74 09/02/23 09:37 37.0 C 74 20 134/70 09/02/23 09:00 134/77 09/02/23 09:00 91 H 15 09/02/23 08:55 90 14 09/02/23 08:50 92 H 15 09/02/23 08:45 85 17 09/02/23 08:45 130/75 09/02/23 08:40 87 14 09/02/23 08:35 85 15 09/02/23 08:30 87 16 09/02/23 08:30 12 122/72 09/02/23 08:30 36.8 C 86 20 135/74 09/02/23 08:15 124/77 09/02/23 08:15 87 12 09/02/23 08:00 74 20 124/79 09/02/23 08:00 92 H 19 09/02/23 07:45 127/74 09/02/23 07:45 91 H 18 09/02/23 07:30 92 H 22 09/02/23 07:30 120/77 09/02/23 07:30 91 H 20 121/74 09/02/23 07:15 93 H 18 09/02/23 07:15 121/74 09/02/23 07:00 120/75 09/02/23 07:00 89 17 09/02/23 07:00 92 H 09/02/23 07:00 36.7 C 90 20 131/74 09/02/23 06:45 120/75 09/02/23 06:45 88 25 H 09/02/23 06:45 37.2 C 98 H 18 120/75 09/02/23 06:30 93 H 21 09/02/23 06:22 37.1 C 110 H 14 101/76 09/02/23 06:17 101/76 09/02/23 06:17 98 H 17 09/02/23 06:00 89 19 09/02/23 06:00 114/71 09/02/23 06:00 09/02/23 05:30 91 H 19 09/02/23 05:00 90 24 09/02/23 05:00 107/60 09/02/23 04:16 99 H 9 L Pulse Ox O2 Del Method O2 Flow Rate 09/02/23 15:30 94 Room Air 09/02/23 14:30 94 Room Air 09/02/23 14:00 93 Room Air 09/02/23 13:30 96 Nasal Cannula 2 09/02/23 12:55 97 Nasal Cannula 2 09/02/23 12:40 97 Nasal Cannula 2 09/02/23 12:25 97 Nasal Cannula 2 09/02/23 12:10 97 Nasal Cannula 2 09/02/23 11:55 96 Nasal Cannula 2 09/02/23 11:45 96 Nasal Cannula 2 09/02/23 11:35 93 Room Air 09/02/23 11:25 94 Oxymask 5 09/02/23 10:02 98 09/02/23 09:57 98 Room Air 09/02/23 09:52 98 09/02/23 09:37 97 09/02/23 09:00 09/02/23 09:00 99 09/02/23 08:55 99 09/02/23 08:50 100 09/02/23 08:45 99 09/02/23 08:45 09/02/23 08:40 99 09/02/23 08:35 99 09/02/23 08:30 100 09/02/23 08:30 98 09/02/23 08:30 97 09/02/23 08:15 09/02/23 08:15 99 09/02/23 08:00 97 09/02/23 08:00 98 09/02/23 07:45 09/02/23 07:45 98 09/02/23 07:30 99 09/02/23 07:30 09/02/23 07:30 99 09/02/23 07:15 99 09/02/23 07:15 09/02/23 07:00 09/02/23 07:00 99 09/02/23 07:00 09/02/23 07:00 97 09/02/23 06:45 09/02/23 06:45 99 09/02/23 06:45 100 3 09/02/23 06:30 98 09/02/23 06:22 97 09/02/23 06:17 09/02/23 06:17 100 09/02/23 06:00 98 09/02/23 06:00 09/02/23 06:00 99 Nasal Cannula 3 09/02/23 05:30 95 09/02/23 05:00 93 09/02/23 05:00 09/02/23 04:16 99 Laboratory Results 09/02/23 04:04 09/02/23 04:04 PG Care Time/CCT Total # of Minutes Spent Total Time Spent with Patient: Total time spent is greater than 50% in coordination of care (as documented) at patient's floor/unit and/or counseling patient: Coding Level of Care Code 52015 SUB INP/OBS CARE 3/50MIN Diagnoses Rectal bleeding K62.5 Acute blood loss anemia D62 Acid reflux K21.9 Hypothyroidism E03.9
[2023-09-02] MEDS: PANTOprazole 40 MG TAB PO SCH (16:27)
[2023-09-02] MEDS: DICYCLOMINE HCL 10 MG CAP PO SCH ×3 (16:28→20:47)
[2023-09-02 17:38] LABS: Hematocrit (blood only) 27.1 % (37.0-47.0); Hemoglobin 8.8 g/dl (12.0-16.0)
[2023-09-02] MEDS ORDERED: OPTIRAY 320 125ml IV ONE (18:13)
--- NOTE | 2023-09-02 18:35 | CT Scan Report ---
CT angio abdomen pelvis w con CLINICAL HISTORY: GI bleeding TECHNIQUE: Multidetector row helical CT of the abdomen and pelvis was performed, following intravenou s administration of iodinated contrast. No oral contrast was administered. Automated dose lowering te chniques and/or adjustment according to patient size were utilized for this exam. Coronal and sagitta l reformations were obtained. MIP and 3D volume rendered reconstructions were obtained. CT DOSE: 1499.26 mGy.cm Comparison: Comparison is made to CT abdomen pelvis 08/24/2023 FINDINGS: Lower chest: Bibasilar atelectasis versus scarring is seen. Liver: Unremarkable. No focal lesions are seen. Gallbladder and biliary tree: Patient is status post cholecystectomy. No intra- or extrahepatic bilia ry ductal dilation. Pancreas: Unremarkable, no focal lesions. Spleen: Unremarkable. Adrenals: Unremarkable. Kidneys and ureters: Unremarkable. Bladder: Unremarkable. Reproductive organs: A left ovarian cyst is seen. This study essentially unchanged from prior exam. Bowel: Postsurgical changes of ileosigmoid anastomosis again seen.. No acute abnormalities are seen. There is no evidence of contrast in the lumen. Lymph nodes Retroperitoneal: Unremarkable. Pelvic: Unremarkable. Mesenteric: Unremarkable. Peritoneum: Normal. Abdominal wall: A fat-containing umbilical hernia is seen. Bones: Degenerative changes in the visualized spine. CT angiogram: The abdominal aortic contours appear intact without evidence of aneurysmal dilatation a nd/or dissection. No significant atherosclerosis is seen. The origins of the celiac axis, superior mesenteric, inferior mesenteric and bilateral renal arteries are patent. IMPRESSION: No acute abnormalities, in particular no evidence of contrast in the GI tract to suggest active extra vasation. ACT 112: Negative or not required by law. Electronically signed by: Ted Melvin M.D. 09/02/2023 6:33 PM
[2023-09-02] MEDS: FAMOTIDINE 20 MG TAB PO SCH (20:47)
[2023-09-03 00:26] LABS: Hematocrit (blood only) 25.9 % (37.0-47.0); Hemoglobin 8.3 g/dl (12.0-16.0)
--- NOTE | 2023-09-03 05:43 | Surgery Progress Note ---
Date of Service September 03, 2023 Assessment & Plan (1) Rectal bleeding: Plan: Patient has been admitted on the hospitalist service: Patient underwent a rectal exam under anesthesia with a rigid sigmoidoscopy on 09/02/2023. During this study old blood with liquid school was found with no active source of bleeding noted. CT angiogram of the abdomen pelvis was performed on 09/02/2023 after the above noted procedure. This study did not show any acute abnormalities, specifically no contrast extravasation to identify the source of rectal bleeding Stool for C. difficile was checked which was negative Most recent hemoglobin and hematocrit were from approximately midnight on 09/03/2023. Hemoglobin and hematocrit were 8.3 and 25.9 respectively at this time. These values did not represent a precipitous drop from levels checked previously at approximately 5:00 PM on 09/02/2023. Patient did require transfusion of 3 units of packed red blood cells since admission. (Presenting hemoglobin was 7.4 on 09/01/2023 and dropped to 6.8 on 09/02/2023) Continue to follow serial laboratories with further transfusions as clinically indicated Admission and Anticipated Discharge Date Admission Date: September 01, 2023 Subjective Patient is currently resting comfortably in bed. She notes that since her procedure yesterday she continues to have bloody bowel movements. She notes over the past shift her bowel movements were dark red in color without any visible clots. She notes she is overall asymptomatic in this regard as she denies any abdominal pain or nausea/vomiting. She also notes she does not have any chest pain, shortness of breath, lightheadedness, or dizziness. Physical Exam Gastrointestinal (Abdomen): Abdomen is soft, nonrigid, nondistended. There is no rebound tenderness or guarding or pain with palpation. Results & Data Vital Signs (Past 12 Hours) Vital Signs Temp Pulse Pulse Resp BP Pulse Ox O2 Del Method 09/03/23 04:09 36.8 C 80 18 116/73 93 Room Air 09/02/23 23:19 36.9 C 86 18 115/75 93 Room Air 09/02/23 23:00 93 H 09/02/23 20:09 37.1 C 92 H 18 119/75 92 Room Air 09/02/23 17:48 98 H PG Care Time/CCT Total # of Minutes Spent Total Time Spent with Patient: Total time spent is greater than 50% in coordination of care (as documented) at patient's floor/unit and/or counseling patient: Coding Level of Care Code 26680 SUB INP/OBS CARE 09/29MIN Diagnoses Rectal bleeding K62.5
[2023-09-03] MEDS ORDERED: CIPROFLOXACIN / D5W 400 MG/200 ML BAG IV SCH (06:00)
[2023-09-03] MEDS: LEVOTHYROXINE SODIUM 137 MCG TABLET PO SCH (06:37)
[2023-09-03 08:36] LABS: Basophils # (auto) 0.04 K/uL (0.00-0.20); Basophils % (auto) 0.5 %; Eosinophils # (auto) 0.09 K/uL (0.00-0.50); Eosinophils % (auto) 1.1 %; Hematocrit (blood only) 26.7 % (37.0-47.0); Hemoglobin 8.6 g/dl (12.0-16.0); Immature Granulocytes # (auto) 0.04 K/uL (0.01-0.20); Immature Granulocytes % (auto) 0.5 %; Lymphocytes % (auto) 16.7 %; Mean Corpuscular Hemoglobin 27.7 pg (25.0-34.0); Mean Corpuscular Hgb Conc 32.2 g/dL (32.0-36.0); Mean Corpuscular Volume 85.9 fL (80.0-100.0); Mean Platelet Volume 9.6 fL (9.4-12.4); Monocytes # (auto) 0.57 K/uL (0.11-0.59); Monocytes % (auto) 6.8 %; Neutrophils # (auto) 6.24 K/uL (1.40-6.50); Neutrophils % (auto) 74.4 %; Platelet Count 305 K/uL (130-400); RDW Coefficient of Variation 14.1 % (11.5-14.5); RDW Standard Deviation 43.8 fL (36.4-46.3); Red Blood Count 3.11 M/uL (4.20-5.40); White Blood Count 8.38 K/ul (4.8-10.8)
[2023-09-03] MEDS: DICYCLOMINE HCL 10 MG CAP PO SCH ×3 (08:59→20:09)
[2023-09-03] MEDS: MULTIVITAMIN TAB PO SCH (09:00)
[2023-09-03] MEDS: PANTOprazole 40 MG TAB PO SCH (09:00)
[2023-09-03] MEDS: CHOLECALCIFEROL 5,000 UNITS 125 MCG TAB PO SCH (09:00)
[2023-09-03] MEDS: CYANOCOBALAMIN (B-12) 500 MCG TABLET PO SCH (09:00)
[2023-09-03 09:11] LABS: Albumin Globulin Ratio 1.3 (0.9-2); Albumin Level 3.7 gm/dl (3.4-5.0); BUN Creatinine Ratio 22.6 (10-20); Bilirubin,Total 0.4 mg/dl (0.2-1.0); Calcium 8.5 mg/dl (8.6-10.3); Creatinine Clr Calc Pharmacy 130.4 ml/min; Est GFR (African American) 120.2 ml/min; Est GFR (Non-African American) 103.7 ml/min; Globulin 2.9 gm/dl (2.5-4.0); Potassium 3.5 mmol/L (3.5-5.1); Total Protein 6.6 gm/dl (6.0-8.3)
--- NOTE | 2023-09-03 12:38 | Gastroenterology Progress Note ---
Date of Service September 03, 2023 Assessment & Plan (1) Acute blood loss anemia: (2) Rectal bleeding: Plan: Recent EGD and colonoscopy in October Will defer to primary GI team, Yaneth, as to repeat endoscopic workup Continue current therapy and supportive care Surgery following patient, with known grade II hemorrhoids Admission and Anticipated Discharge Date Admission Date: September 01, 2023 Subjective She is doing better today. States that she did have a bloody BM earlier today, but denies any abdominal pain, fevers, chills, nausea, vomiting, hematemesis, or melena. I reviewed the results of her CTA abd/pelvis with her and informed her it was normal, without evidence of active GI bleeding. She denies any further complaints. Review of Systems Review of Systems: All systems reviewed & are unremarkable except as noted in Subjective Physical Exam Constitutional: WD/WN, vitals as above Respiratory: normal respiratory effort, lungs clear to auscultation Cardiovascular: RRR, no murmur, no edema Gastrointestinal (Abdomen): normal bowel sounds, soft, nontender, no hepato splenomegaly Results & Data Results & Data Vital Signs (Past 12 Hours) Vital Signs Temp Pulse Pulse Resp BP Pulse Ox O2 Del Method 09/03/23 11:48 37.0 C 101 H 18 119/82 98 Room Air 09/03/23 08:33 36.9 C 79 18 116/75 95 Room Air 09/03/23 07:18 79 09/03/23 04:09 36.8 C 80 18 116/73 93 Room Air PG Care Time/CCT Total # of Minutes Spent Total Time Spent with Patient: Total time spent is greater than 50% in coordination of care (as documented) at patient's floor/unit and/or counseling patient: Coding Level of Care Code 06030 SUB INP/OBS CARE 3/50MIN Diagnoses Acute blood loss anemia D62 Rectal bleeding K62.5
[2023-09-03 13:47] LABS: Basophils # (auto) 0.05 K/uL (0.00-0.20); Basophils % (auto) 0.6 %; Eosinophils # (auto) 0.18 K/uL (0.00-0.50); Eosinophils % (auto) 2.1 %; Hematocrit (blood only) 27.2 % (37.0-47.0); Hemoglobin 8.5 g/dl (12.0-16.0); Immature Granulocytes # (auto) 0.03 K/uL (0.01-0.20); Immature Granulocytes % (auto) 0.4 %; Lymphocytes # (auto) 1.52 K/uL (1.20-3.40); Mean Corpuscular Hemoglobin 26.9 pg (25.0-34.0); Mean Corpuscular Hgb Conc 31.3 g/dL (32.0-36.0); Mean Corpuscular Volume 86.1 fL (80.0-100.0); Mean Platelet Volume 9.6 fL (9.4-12.4); Monocytes # (auto) 0.63 K/uL (0.11-0.59); Monocytes % (auto) 7.5 %; Neutrophils # (auto) 6.02 K/uL (1.40-6.50); Neutrophils % (auto) 71.4 %; Platelet Count 322 K/uL (130-400); Red Blood Count 3.16 M/uL (4.20-5.40); White Blood Count 8.43 K/ul (4.8-10.8)
--- NOTE | 2023-09-03 14:31 | Hospitalist Progress Note ---
Date of Service September 03, 2023 Assessment & Plan (1) Rectal bleeding: Plan: Lower GI source. She had endoscopic evaluation for general surgery on September 02 in the OR. This was followed by GI consultation and CT scan of the abdomen and pelvis. No significant findings noted. She previously has undergone partial colectomy with end-to-end reanastomosis. I suspect her bleeding may be diverticular in nature. Bleeding persists and thankfully hemoglobin is now stable. She has received 3 units packed red blood cells to date. Will allow full liquids for now. (2) Acute blood loss anemia: Plan: She has received 3 units of packed red blood cells to date. Continue serial H&H. Transfuse as necessary (3) Acid reflux: Plan: Stable. Continue PPI therapy and H2 libia (4) Hypothyroidism: Plan: Chronic. Continue Synthroid replacement therapy Plan Hopeful discharge to home soon Admission and Anticipated Discharge Date Admission Date: September 01, 2023 Subjective Alert and oriented. She states she continues to have bloody bowel movements which are dark in nature. This does not sound like internal hemorrhoidal bleeding but may be diverticular in nature. Fortunately, hemoglobin remained stable at 8.6. She has received 3 units packed red blood cells to date. Will allow full liquid diet. Continue serial H&H. Review of Systems 2 Review of Systems: Constitutional-no fever or chills ENT-no blurred vision, no double vision, no epistaxis, no sore throat Respiratory-no cough, no wheezing, no shortness of breath Cardiac-no palpitations, no chest pain, no syncope GI-no nausea, vomiting, diarrhea. Several episodes of bright red rectal bleeding -no urinary retention, no urinary incontinence, no dysuria, no hematuria Musculoskeletal-no joint pain, no muscle tenderness Skin-no bruising, no rashes, no pruritus Neuro-no isolated weakness, no paresthesia, no weakness Psych-no depression, no anxiety Physical Exam 2 Physical Exam: General-alert and oriented x3, no fevers, no chills HEENT-head atraumatic and normocephalic, pupils equal and reactive to light, extraocular muscles intact Neck-no lymphadenopathy or thyromegaly, trachea midline Chest-clear to auscultation percussion. No rales, wheezing or rhonchi Cardiac-regular rate and rhythm, normal S1 and S2 Abdomen-normal bowel sounds, nontender, no hepatosplenomegaly Extremities-no cyanosis, clubbing, or edema Neuro-cranial nerves II through XII intact, motor and sensory function within normal limits, strength symmetrical, no focal deficits Psych-normal affect, normal mood Results & Data Results & Data Vital Signs (Past 12 Hours) Vital Signs Temp Pulse Pulse Resp BP Pulse Ox O2 Del Method 09/03/23 11:48 37.0 C 101 H 18 119/82 98 Room Air 09/03/23 08:33 36.9 C 79 18 116/75 95 Room Air 09/03/23 07:18 79 09/03/23 04:09 36.8 C 80 18 116/73 93 Room Air Laboratory Results 09/03/23 13:14 09/03/23 07:48 PG Care Time/CCT Total # of Minutes Spent Total Time Spent with Patient: Total time spent is greater than 50% in coordination of care (as documented) at patient's floor/unit and/or counseling patient: Coding Level of Care Code 12982 SUB INP/OBS CARE 3/50MIN Diagnoses Rectal bleeding K62.5 Acute blood loss anemia D62 Acid reflux K21.9 Hypothyroidism E03.9
[2023-09-03 19:21] LABS: Hematocrit (blood only) 24.3 % (37.0-47.0)
[2023-09-03] MEDS: FAMOTIDINE 20 MG TAB PO SCH (20:08)
[2023-09-04] MEDS: LEVOTHYROXINE SODIUM 137 MCG TABLET PO SCH (06:16)
[2023-09-04 07:14] LABS: Basophils # (auto) 0.04 K/uL (0.00-0.20); Basophils % (auto) 0.6 %; Eosinophils # (auto) 0.22 K/uL (0.00-0.50); Eosinophils % (auto) 3.2 %; Hematocrit (blood only) 24.4 % (37.0-47.0); Hemoglobin 7.8 g/dl (12.0-16.0); Immature Granulocytes # (auto) 0.02 K/uL (0.01-0.20); Immature Granulocytes % (auto) 0.3 %; Lymphocytes # (auto) 1.21 K/uL (1.20-3.40); Lymphocytes % (auto) 17.5 %; Mean Corpuscular Hemoglobin 27.3 pg (25.0-34.0); Mean Corpuscular Volume 85.3 fL (80.0-100.0); Mean Platelet Volume 9.4 fL (9.4-12.4); Monocytes # (auto) 0.56 K/uL (0.11-0.59); Monocytes % (auto) 8.1 %; Neutrophils # (auto) 4.86 K/uL (1.40-6.50); Neutrophils % (auto) 70.3 %; Platelet Count 259 K/uL (130-400); RDW Coefficient of Variation 14.3 % (11.5-14.5); RDW Standard Deviation 44.3 fL (36.4-46.3); Red Blood Count 2.86 M/uL (4.20-5.40); White Blood Count 6.91 K/ul (4.8-10.8)
[2023-09-04 07:42] LABS: BUN Creatinine Ratio 22.2 (10-20); Calcium 8.4 mg/dl (8.6-10.3); Creatinine Clr Calc Pharmacy 149.8 ml/min; Est GFR (African American) 125.7 ml/min; Est GFR (Non-African American) 108.5 ml/min; Potassium 3.7 mmol/L (3.5-5.1)
[2023-09-04 07:54] LABS: Polychromasia 1+
[2023-09-04] MEDS: DICYCLOMINE HCL 10 MG CAP PO SCH ×3 (08:46→20:17)
[2023-09-04] MEDS: PANTOprazole 40 MG TAB PO SCH (08:46)
[2023-09-04] MEDS: CYANOCOBALAMIN (B-12) 500 MCG TABLET PO SCH (08:47)
[2023-09-04] MEDS: MULTIVITAMIN TAB PO SCH (08:47)
[2023-09-04] MEDS: CHOLECALCIFEROL 5,000 UNITS 125 MCG TAB PO SCH (08:48)
[2023-09-04] MEDS ORDERED: SODIUM CHLORIDE 0.9% 250 ML IV PRN (09:24)
--- NOTE | 2023-09-04 12:23 | Hospitalist Progress Note ---
Date of Service September 04, 2023 Assessment & Plan (1) Rectal bleeding: Plan: Lower GI source. She had endoscopic evaluation by general surgery on September 02 in the OR. This was followed by [facility] [place] and CT scan of the abdomen and pelvis. No significant findings noted. She previously has undergone partial colectomy with end-to-end reanastomosis. This was apparently done due to recurrent diverticulitis. I suspect her current bleeding is diverticular in nature. Hemoglobin has drifted down to 7.8 again and she continues to have hematochezia stools. [facility] GI service performed her most recent colonoscopy and they have been consulted. She has received 3 units packed red blood cells to date and to more have been ordered. Continue full liquids for now. (2) Acute blood loss anemia: Plan: She has received 3 units of packed red blood cells to date. 2 more units ordered for hemoglobin 7.8. Continue serial H&H. Transfuse as necessary (3) Acid reflux: Plan: Stable. Continue PPI therapy and H2 libia (4) Hypothyroidism: Plan: Chronic. Continue Synthroid replacement therapy Plan Hopeful discharge to home soon Admission and Anticipated Discharge Date Admission Date: September 01, 2023 Subjective Alert and oriented. No distress. Hemoglobin has drifted down to 7.8 and she continues to have bloody stools. I suspect this is colonic diverticular bleeding. 2 more units packed red blood cells ordered. Will continue serial H&H measurements. [facility] gastroenterology consultation requested. They did her previous colonoscopy earlier this year. Review of Systems 2 Review of Systems: Constitutional-no fever or chills ENT-no blurred vision, no double vision, no epistaxis, no sore throat Respiratory-no cough, no wheezing, no shortness of breath Cardiac-no palpitations, no chest pain, no syncope GI-no nausea, vomiting, diarrhea. Several episodes hematochezia -no urinary retention, no urinary incontinence, no dysuria, no hematuria Musculoskeletal-no joint pain, no muscle tenderness Skin-no bruising, no rashes, no pruritus Neuro-no isolated weakness, no paresthesia, no weakness Psych-no depression, no anxiety Physical Exam 2 Physical Exam: General-alert and oriented x3, no fevers, no chills HEENT-head atraumatic and normocephalic, pupils equal and reactive to light, extraocular muscles intact Neck-no lymphadenopathy or thyromegaly, trachea midline Chest-clear to auscultation percussion. No rales, wheezing or rhonchi Cardiac-regular rate and rhythm, normal S1 and S2 Abdomen-normal bowel sounds, nontender, no hepatosplenomegaly Extremities-no cyanosis, clubbing, or edema Neuro-cranial nerves II through XII intact, motor and sensory function within normal limits, strength symmetrical, no focal deficits Psych-normal affect, normal mood Results & Data Results & Data Vital Signs (Past 12 Hours) Vital Signs Temp Pulse Pulse Resp BP BP Pulse Ox 09/04/23 11:22 37.1 C 102 H 18 153/73 H 96 09/04/23 10:49 36.7 C 92 H 18 116/75 95 09/04/23 08:18 36.9 C 90 18 112/70 95 09/04/23 07:44 87 09/04/23 03:43 36.8 C 88 18 112/66 96 O2 Del Method 09/04/23 11:22 Room Air 09/04/23 10:49 09/04/23 08:18 Room Air 09/04/23 07:44 09/04/23 03:43 Room Air Laboratory Results 09/04/23 06:56 09/04/23 06:56 PG Care Time/CCT Total # of Minutes Spent Total Time Spent with Patient: Total time spent is greater than 50% in coordination of care (as documented) at patient's floor/unit and/or counseling patient: Coding Level of Care Code 12894 SUB INP/OBS CARE 3/50MIN Diagnoses Rectal bleeding K62.5 Acute blood loss anemia D62 Acid reflux K21.9 Hypothyroidism E03.9
[2023-09-04 18:06] LABS: Hematocrit (blood only) 32.4 % (37.0-47.0); Hemoglobin 10.4 g/dl (12.0-16.0)
[2023-09-04] MEDS: FAMOTIDINE 20 MG TAB PO SCH (20:17)
[2023-09-04] MEDS ORDERED: IPRATROPIUM BROMIDE SCH (21:00)
[2023-09-04 22:46] LABS: Hematocrit (blood only) 33.1 % (37.0-47.0); Hemoglobin 10.5 g/dl (12.0-16.0)
[2023-09-05] MEDS: LEVOTHYROXINE SODIUM 137 MCG TABLET PO SCH (06:08)
[2023-09-05] MEDS: CHOLECALCIFEROL 5,000 UNITS 125 MCG TAB PO SCH (07:51)
[2023-09-05] MEDS: DICYCLOMINE HCL 10 MG CAP PO SCH ×2 (07:52→13:52)
[2023-09-05] MEDS: CYANOCOBALAMIN (B-12) 500 MCG TABLET PO SCH (07:52)
[2023-09-05] MEDS: MULTIVITAMIN TAB PO SCH (07:52)
[2023-09-05] MEDS: PANTOprazole 40 MG TAB PO SCH (07:52)
[2023-09-05 08:12] LABS: Basophils # (auto) 0.07 K/uL (0.00-0.20); Basophils % (auto) 0.9 %; Eosinophils # (auto) 0.24 K/uL (0.00-0.50); Hematocrit (blood only) 32.3 % (37.0-47.0); Hemoglobin 10.6 g/dl (12.0-16.0); Immature Granulocytes # (auto) 0.03 K/uL (0.01-0.20); Immature Granulocytes % (auto) 0.4 %; Lymphocytes # (auto) 1.23 K/uL (1.20-3.40); Lymphocytes % (auto) 15.3 %; Mean Corpuscular Hemoglobin 26.5 pg (25.0-34.0); Mean Corpuscular Hgb Conc 32.8 g/dL (32.0-36.0); Mean Corpuscular Volume 80.8 fL (80.0-100.0); Mean Platelet Volume 9.4 fL (9.4-12.4); Monocytes # (auto) 0.74 K/uL (0.11-0.59); Monocytes % (auto) 9.2 %; Neutrophils # (auto) 5.74 K/uL (1.40-6.50); Neutrophils % (auto) 71.2 %; Platelet Count 316 K/uL (130-400); RDW Coefficient of Variation 16.2 % (11.5-14.5); RDW Standard Deviation 47.5 fL (36.4-46.3); White Blood Count 8.05 K/ul (4.8-10.8)
[2023-09-05 08:30] LABS: BUN Creatinine Ratio 12.3 (10-20); Calcium 8.7 mg/dl (8.6-10.3); Creatinine Clr Calc Pharmacy 124.4 ml/min; Est GFR (African American) 118.3 ml/min; Est GFR (Non-African American) 102.1 ml/min; Potassium 3.7 mmol/L (3.5-5.1)
--- NOTE | 2023-09-05 12:03 | Discharge Summary ---
Date of Service September 05, 2023 Admission HPI Per Admitting Provider Fabiola Handley is a 53yo female presenting with rectal bleeding. Patient remote history of diverticulitis s/p subtotal colectomy with end-to-side ileo-colonic anastomosis in the sigmoid colon, multiple polyps and internal hemorrhoids presenting with rectal bleeding. Patient has been having rectal bleeding ongoing since June. She reports that she would have passage of bright red blood per rectum that filled the toilet bowl - initially 2-3 times per week which has been increasing in frequency over the last several weeks. She now has blood in the toilet bowl 4-5 times weekly sometimes multiple times per day. She reports that her stools are mostly soft and she does not strain to have bowel movements. Reports no blood on or in the stool. She denies abdominal pain or pain with bowel movement. She has been seen by General Surgery in clinic for this issue - Dr. Hannah - and they plan for hemorrhoid removal or anal fissure repair on 09/09/23. She had an EGD and Colonoscopy performed on 10/29/22 which revealed one 3mm polyp which was removed, functional anastomosis with healthy mucosa. EGD normal. Patient was seen in clinic for pre-operative labs on 08/24/23 and had blood drawn. Her Hgb was found to be low at 6.7. She was contacted today with these results and told to come to the ER. She endorses some weakness and fatigue but denies chest pain, palpitations, SOB, CHOWDHURY. In the ER she is afebrile, HD stable, NAD ER Coure: 1u PRBCs Principal Diagnosis Lower GI diverticular bleed, acute blood loss anemia Discharge Exam General-alert and oriented x3, no fevers, no chills HEENT-head atraumatic and normocephalic, pupils equal and reactive to light, extraocular muscles intact Neck-no lymphadenopathy or thyromegaly, trachea midline Chest-clear to auscultation percussion. No rales, wheezing or rhonchi Cardiac-regular rate and rhythm, normal S1 and S2 Abdomen-normal bowel sounds, nontender, no hepatosplenomegaly Extremities-no cyanosis, clubbing, or edema Neuro-cranial nerves II through XII intact, motor and sensory function within normal limits, strength symmetrical, no focal deficits Psych-normal affect, normal mood Discharge Data Allergies Allergy/AdvReac Type Severity Reaction Status Date / Time tazobactam Allergy Mild ZOSYN--RXN Verified 09/01/23 19:20 UNKNOWN, TOLERATES MEFOXIN piperacillin [From Zosyn] Allergy Verified 09/01/23 19:20 amoxicillin AdvReac Intermediate DIARRHEA Verified 09/01/23 19:20 AND PAIN IN STOMACH clavulanic acid AdvReac Mild STOMACH Verified 09/01/23 19:20 UPSET AND DIARRHEA Penicillins AdvReac Mild STOMACH Verified 09/01/23 19:20 UPSET AND DIARRHEA Consultations 09/01/23 20:50 ED Decision to Admit Stat 09/01/23 22:23 Consult General Surgery Routine 09/02/23 12:58 Consult Gastroenterology Routine 09/04/23 09:24 Consult Gastroenterology Routine Procedures Performed Operation Date: 09/02/23 10:30 Actual Procedures p Rectal Exam with Sigmoidscope(Not Applicable) - Gail Rodriguez MD Ordered Studies 09/01/23 13:35 CT abd pelvis IV con only Stat 09/02/23 13:12 CTA abdomen pelvis w con [CT angio abdomen pelvis w con] Stat Hospital Course (1) Rectal bleeding: Lower GI source. She had endoscopic evaluation by general surgery on September 02 in the OR. This was followed by [facility] [place] consultation and CT scan of the abdomen and pelvis. No significant findings noted. She previously has undergone partial colectomy with end-to-end reanastomosis apparently for recurrent diverticulitis. I suspect her current bleeding is diverticular in nature. Hemoglobin now appears to have stabilized. She has received a total of 5 units packed red blood cells. [facility] GI service performed her most recent colonoscopy and they have been consulted but were not able to see the patient prior to discharge. Most recent hemoglobin 10.6 (2) Acute blood loss anemia: She has received 5 units of packed red blood cells to date. Hemoglobin appears to have stabilized and diverticular bleed stopped. (3) Acid reflux: Stable. Continue PPI therapy and H2 libia (4) Hypothyroidism: Chronic. Continue Synthroid replacement therapy Plan Home today, September 05. She will return to the ED if her bleeding recurs Total Time Total Time Spent Total Time Spent (In Minutes): 35 minutes Discharge Plan Discharge Items Patient Disposition: Home - Self-Care Reason For Visit: RECTAL BLEEDING Discharge Diagnosis: Suspected lower GI diverticular bleeding. Acute blood loss anemia Non-emergency contact: Primary Care Provider Call non-emergency contact if: your symptoms worsen Follow-up/Referrals: Glenn Carpio MD [Primary Care Provider] - Diet: Regular Addtl Attending Provider Instructions: Remain off aspirin for 1 more week. Pending Studies at Discharge: No Stand-Alone Forms: [facility] ChangeTip, Smoking Cessation Medications and DC Order Prescriptions: Continued aspirin [Adult Aspirin Regimen] 81 mg tablet,delayed release (DR/EC) 81 mg PO PM Xiidra 5 % dropperette 1 drp ophthalmic (eye) BID Rx Instructions: administer approximately 12 hours apart famotidine 20 mg tablet 20 mg PO HS mecobalamin (vitamin B12) 1,000 mcg tablet,chewable 1,000 mcg PO QAM dicyclomine 10 mg capsule 10 mg PO TID multivitamin tablet 1 tab PO QAM pantoprazole 40 mg tablet,delayed release (DR/EC) 40 mg PO QAM levothyroxine 137 mcg tablet 137 mcg PO QAM cholecalciferol (vitamin D3) 125 mcg (5,000 unit) capsule 125 mcg PO QAM ipratropium bromide 21 mcg (0.03 %) spray,non-aerosol 1 spray intranasal PM Rx Instructions: USE 1 SPRAY IN EACH NOSTRIL DAILY IN THE EVENING Discharge Orders: Discharge Order (Routine); Ordered 09/05/23 Ordered By: Rafael Levine Admission Data Admit Date/Time: 09/01/23 20:28 Attending Provider: Rafael Levine Admit Provider: Alie Eduardo Primary Care Provider: Glenn Carpio Other Providers: Alie Eduardo; Gail Rodriguez; Chasity Barker; Lalito Mancuso; Marlen Santos; Genie Klein; Argelia Ceron; Oniel Burch; Iván Johnson; Estefania Kent; Bora Corral; Mitra Lobato; Lul Alvares; Mary Tubbs; Kaitlynn Avalos; Tanisha Lanier; Sofie Burnette; Antione Desir; Ronaldo Wagner; Woody Cruz; Marni Giron; Jaleel Griffin Jr Coding Level of Care Code 30624 INP/OBS DISCH >30 MIN Diagnoses Rectal bleeding K62.5 Acute blood loss anemia D62 Acid reflux K21.9 Hypothyroidism E03.9
== END 2023-09-05 14:28 | disposition home or self-care (01) | DRG 378 ==
LOC: ED 13:16 → SUATTDRO 20:28 → EDINP 20:28 → 2W 09-02 17:08